=== PATIENT | female | born 1995 | race American Indian/Alaskan Native ===

== ENCOUNTER 2018-10-22 06:18 | Inpatient (IN) | payer MEDICAID ==
[2018-10-22] MEDS ORDERED: COLACE PO PRN (06:54)
[2018-10-22] MEDS ORDERED: ZOFRAN IV PRN (06:54)
[2018-10-22] MEDS ORDERED: TYLENOL PO PRN (06:54)
[2018-10-22] MEDS ORDERED: AMBIEN PO PRN ×2 (06:54→21:30)
[2018-10-22] MEDS ORDERED: BENADRYL PO PRN (06:54)
[2018-10-22] MEDS ORDERED: SENOKOT S PO PRN (06:54)
--- NOTE | 2018-10-22 07:14 | History and Physical Report ---
History of Present Illness Date of examination: 10/22/18 (pt presented with c/o DFM and poss elevated BP) History of present illness: 1st SAB 2nd 2017 31weeks "extremely elevated BP" c/s 2 pounds [facility] HX elevated BP no meds now Surgaical HX c/s Pt denies smoking, ETOH, drug use Pt has not had care up to this time for Past History - Obstetrical History : 3 Medications and Allergies Allergies Allergy/AdvReac Type Severity Reaction Status Date / Time No Known Allergies Allergy Unverified 10/22/18 06:35 Active Meds: Active Medications Acetaminophen (Tylenol) 650 mg PO Q4H PRN PRN Reason: Pain MILD(1-3)/Fever >100.5/HASSAN Diphenhydramine HCl (Benadryl) 25 mg PO Q6H PRN PRN Reason: Itching Docusate Sodium (Colace) 100 mg PO Q12H PRN PRN Reason: Constipation Guaifenesin (Guaifenesin Dm Syrup) 10 ml PO Q6H PRN PRN Reason: Cough Multivitamins/Iron/Calcium ( Vitamin) 1 each PO QDAY TERRELL Ondansetron HCl (Zofran) 4 mg IV Q6H PRN PRN Reason: Nausea And Vomiting Senna/Docusate Sodium (Senokot S) 2 tab PO Q12H PRN PRN Reason: Laxative Effect Zolpidem Tartrate (Ambien) 10 mg PO ONCE PRN PRN Reason: Sleep - Vital Signs Vital signs: Vital Signs Pulse BP 77 152/97 10/22/18 06:43 10/22/18 06:43 Temp Pulse Resp BP Pulse Ox 77 152/97 10/22/18 06:43 10/22/18 06:43 - Physical Exam Breasts: Positive: deferred Cardiovascular: Regular rate, Normal S1, Normal S2 Lungs: Positive: Normal air movement Abdomen: Positive: normal appearance, soft, normal bowel sounds. Negative: distention, tenderness Genitourinary (Female): Positive: normal external genitalia Vulva: both: normal Vagina: Positive: normal moisture. Negative: discharge Cervix: Negative: lesion, discharge Uterus: Positive: normal size, normal contour Adnexa: both: normal Anus/Rectum: Positive: normal perianal skin, heme negative. Negative: rectal mass, hemorrhoids Extremities: Deep Tendon Reflex Grade: Normal +2 - Obstetrical FHR: other (demise by US) Cervical Dilatation: 10 (BBOW) Uterine Contraction Pattern: Irregular Uterine Contraction Intensity: Moderate Results All other labs normal. Assessment and Plan 23yo @ 22weeks by her calculations Pt c/o DFM and elevated BP US reveals demise measures 17 weeks with a poss cystic hygroma. Pt is aware of findings. Appropriate grieving. All orders in EMR PIH labs ordered.
--- NOTE | 2018-10-22 07:46 | Ultrasound Report ---
PROCEDURE: US OB >= 14 WEEKS FETUS TECHNIQUE: Routine transabdominal imaging was obtained of the pelvis. HISTORY: well being COMPARISONS: None FINDINGS: There is a breech intrauterine with an estimated gestational age of 17 weeks 3 days space o n sonographic images. There is no observable heart rate compatible with demise. The place nta is fundal in position and is grade 1. The fluid volume is normal. A survey of organs was no t obtained. IMPRESSION: demise, 17 weeks 3 day .. The findings were discussed with Dr. Farr at 7:45 AM on 10/22/2018. This document is electronically signed by Jared Pendleton MD., Oct 22 2018 07:45:12 AM ET
[2018-10-22] MEDS ORDERED: LACTATED RINGERS 1,000 ML ONE ×2 (07:54→09:02)
[2018-10-22 08:27] LABS: Basophils % (Auto) 0.2 % (0.0-1.8); Eosinophils # (Auto) 0.1 K/mm3 (0.0-0.4); Hematocrit 30.9 % (30.3-42.9); Hemoglobin 10.1 gm/dl (10.1-14.3); Lymphocytes # (Auto) 2.2 K/mm3 (1.2-5.4); Mean Corpuscular HGB Conc 33 % (30-34); Mean Corpuscular Volume 86 fl (79-97); Monocytes # (Auto) 0.9 K/mm3 (0.0-0.8); Monocytes % (Auto) 7.2 % (0.0-7.3); Platelet Count 311 K/mm3 (140-440); Red Blood Count 3.59 M/mm3 (3.65-5.03); Red Cell Distribution Width 16.6 % (13.2-15.2)
[2018-10-22] MEDS ORDERED: SUBLIMAZE ONE (08:35)
[2018-10-22] MEDS ORDERED: PITOCin/NS 30 UNIT/500ML 30,000 MILLIUNITS/500 ML BAG IV ONE (08:49)
[2018-10-22 08:51] LABS: Hepatitis C Virus Antibody Non-Reactive (NonReactive)
[2018-10-22 08:54] LABS: Alanine Aminotransferase 7 units/L (7-56); Albumin 3.9 g/dL (3.9-5); BUN/Creatinine Ratio 6; Blood Urea Nitrogen 3 mg/dL (7-17); Hemolysis Index 2
[2018-10-22 08:56] LABS: Alanine Aminotransferase 7 units/L (7-56); Uric Acid 2.5 mg/dL (3.5-7.6)
[2018-10-22] MEDS ORDERED: STADOL ONE (09:02)
--- NOTE | 2018-10-22 09:29 | Event Note ---
Date: 10/22/18 (called to bedside by RN) Pt having strong urge to push. Pt pushed and body delivered in caul. Cervix now 2-3cm dilated with entrapment of head. consulted. Pitocin started Pain medication ordered. He will come by to see pt and evaluate.
[2018-10-22] MEDS ORDERED: PITOCin/NS 30 UNIT/500ML 30 UNITS/500 ML BAG IV SCH ×2 (09:30→10:00)
[2018-10-22] MEDS ORDERED: STADOL IV PRN (09:30)
[2018-10-22] MEDS: APRESOLINE IV PRN ×2 (09:41→10:19)
[2018-10-22] MEDS ORDERED: SUBLIMAZE IV ONE (10:00)
[2018-10-22] MEDS ORDERED: PRENATAL VITAMIN PO SCH (10:00)
[2018-10-22] MEDS ORDERED: PITOCin/NS 20 UNIT/1000ML DRIP 20,000 MILLIUNITS/1,000 ML BAG IV ONE (10:44)
--- NOTE | 2018-10-22 11:16 | Procedure Note ---
OB Delivery Note - Delivery Date of Delivery: 10/22/18 Managing Partner: ERIKA ALONZO Estimated blood loss: 200cc - Vaginal Delivery presentation: breech Intrapartum events: no care, foul smelling fluid, other(please specify) (IUFD Maternal Hypertension) Delivery monitor: external uterine Delivery placenta: spontaneous Anesthesia: intravenous Delivery comments: Called urgently to LDR. Pt had vomited and the fetus and placenta delivered En Caul POC sent to pathology. Pt appropriate. Her sister at bedside. consulted regarding BP mgt Will keep pt on Procardia XL - Infant A at 1 minute: 0 at 5 minutes: 0 Infant Gender: Ambiguous
[2018-10-22] MEDS: PROCARDIA XL PO SCH ×2 (11:58→21:47)
[2018-10-22] MEDS ORDERED: LANSINOH TP PRN (12:00)
[2018-10-22] MEDS ORDERED: SODIUM CHLORIDE FLUSH SYRINGE 10 ML IV PRN (12:00)
[2018-10-22] MEDS ORDERED: PHENERGAN PO PRN (12:00)
[2018-10-22] MEDS ORDERED: TUCKS PAD TP PRN (12:00)
[2018-10-22 12:35] LABS: Bacteria,Urine 2+ /HPF (Negative); Bilirubin,Urine NEG (Negative); Blood,Urine LG (Negative); Color,Urine Red (Yellow); Urobilinogen,Urine < 2.0 mg/dL (<2.0)
[2018-10-22 12:41] LABS: RBC,Urine > 182.0 /HPF (0.0-6.0)
[2018-10-22 13:16] LABS: Amphetamine Screen,Urine PRESUMPTIVE NEGATIVE; Benzodiazepines Screen,Urine PRESUMPTIVE NEGATIVE; Cocaine Screen,Urine PRESUMPTIVE NEGATIVE; Methadone Screen,Urine PRESUMPTIVE NEGATIVE; Opiate Screen,Urine PRESUMPTIVE NEGATIVE
[2018-10-22 13:36] LABS: Cannabinoid Screen,Urine PRESUMPTIVE POSITIVE
[2018-10-22] MEDS ORDERED: PITOCin/NS 20 UNIT/1000ML DRIP 20 UNITS/1,000 ML BAG IV SCH (14:00)
[2018-10-22] MEDS: IBUPROFEN PO SCH (15:16)
[2018-10-22] MEDS ORDERED: MILK OF MAGNESIA PO PRN (22:00)
[2018-10-22 22:34] LABS: Hematocrit 30.9 % (30.3-42.9); Hemoglobin 10.5 gm/dl (10.1-14.3)
[2018-10-23] MEDS ORDERED: BOOSTRIX IM ONE (06:00)
--- NOTE | 2018-10-23 06:19 | Discharge Summary ---
Providers - Providers Date of Admission: 10/22/18 08:06 Date of discharge: 10/23/18 (Pt desires d/c today) Attending physician: SHERRY HESS 10/22/18 Consult to Case Management [CONS] Routine Services Needed at Discharge: Equipment Sterilizer Primary care physician: SHERRY HESS Hospitalization Reason for admission: IUFD, other (hypertension) Delivery: Episiotomy: none Laceration: none Other procedures: none complications: none Discharge diagnosis: intrapartum demise baby: female Hospital course: uncomplicated vaginal delivery of a demise Pt resting No c/o voiced BP 140-120/90 afebrile No abdominal tenderness FF below umb Minimal lochia H&H stable 04/01 No s/sx of anemia Doing well s/p delivery of demise P: d/c today with instructions RTO one week for BP check RX for Procardia XL written Condition at discharge: Good Disposition: DC-01 TO HOME OR SELFCARE - Discharge Diagnoses (1) Elevated blood pressure affecting in second trimester, antepartum Status: Acute Comment: RTO one week for BP check (2) Foetal demise, less than 22 weeks, delivered, current hospitalisation Status: Acute Comment: Offered referral Pt declined at this time. RTO 4 weeks PP care Plan - Provider Discharge Summary Activity: routine, no sex for 6 weeks, no heavy lifting 4 weeks, no strenuous exercise Diet: other (low salt) Instructions: routine Additional instructions: [] Smoking cessation referral if applicable(refer to patient education folder for contact #) [] Refer to [facility] Booklet Call your doctor immediately for: * Fever > 100.5 * Heavy vaginal bleeding ( >1 pad per hour) * Severe persistent headache * Shortness of breath * Reddened, hot, painful area to leg or breast * Drainage or odor from incision. * Keep incision clean and dry at all times and follow doctor's instructions regarding bathing/showering - Follow up plan Follow up: SHERRY HESS MD [Primary Care Provider] - 7 Days (Please call [phone] to schedule your blood pressure check in 1 week. Call with headache, blurred vision, chest pain. Take medications as prescribed. [facility]: [address], [address] [place] [address])
[2018-10-23] MEDS: PROCARDIA XL PO SCH (10:06)
[2018-10-23] MEDS: IBUPROFEN PO SCH (10:06)
[2018-10-23] MEDS ORDERED: M-M-R II VACCINE SUB-Q ONE (11:00)
[2018-10-23 15:12] VITALS: BP 135/85
== END 2018-10-23 14:50 | disposition home or self-care (01) | DRG 774 ==
LOC: TRG 06:18 → LD 06:29 → TRG 08:05 → LD 08:06 → OB 15:11
PROVIDERS: ADMIT Obstetrics & Gynecology; ATTEND Obstetrics & Gynecology
PROC: 10E0XZZ Delivery of Products of Conception, External Approach (ICD-10-PCS; principal; 2018-10-22)
PROC: 3E0234Z Introduction of Serum, Toxoid and Vaccine into Muscle, Percutaneous Approach (ICD-10-PCS; 2018-10-23)
DX: O36.4XX0 Maternal care for intrauterine death, not applicable or unspecified (principal); O13.4 Gestational [pregnancy-induced] hypertension without significant proteinuria, complicating childbirth; O32.1XX0 Maternal care for breech presentation, not applicable or unspecified; Z37.1 Single stillbirth; Z3A.22 22 weeks gestation of pregnancy; Z23 Encounter for immunization
CPT/HCPCS: 36415; 76805; 80053; 80307; 81001; 82565; 83615; 84450; 84460; 84550; 85014; 85018; 85025; 85660; 86592; 86706; 86762; 86803; 86850; 86900; 86901; 87806; 88300; 88305; G0378; J0360; J0595; J2590; J3010; J7120

== ENCOUNTER 2019-05-28 09:09 | Inpatient (IN) | payer MEDICAID ==
[2019-05-28] MEDS ORDERED: hydrALAZINE 20 MG/1 ML INJ IV ONE (10:00)
[2019-05-28] MEDS: LACTATED RINGERS 1,000 ML IV SCH ×3 (10:25→19:43)
[2019-05-28 11:08] LABS: Mean Corpuscular HGB Conc 33 % (30-34); Mean Corpuscular Volume 91 fl (79-97); Platelet Count 255 K/mm3 (140-440); Red Blood Count 3.62 M/mm3 (3.65-5.03); Red Cell Distribution Width 15.6 % (13.2-15.2)
[2019-05-28 11:23] LABS: Alanine Aminotransferase 76 units/L (7-56); Uric Acid 4.4 mg/dL (3.5-7.6)
--- NOTE | 2019-05-28 11:36 | History and Physical Report ---
History of Present Illness Date of examination: 05/28/19 Chief complaint: Severe headache History of present illness: Pt is a 23yo BF EDC 09/29/19; EGA 22 2/7 weeks presents to L&D complaining of severe headache and elevated BP's 195/114; 196/122. She has a history of Preeclampsia and delivery @ 28 weeks, history of stillbirth and history of spontaneous @ 18 weeks. She had 1 visit at [facility] and scheduled to see [facility] this week, but will be admitted now for management of elevated BP. Past History Past Medical History: other (Preeclampsia) Past Surgical History: section Social history: no significant social history, single - Obstetrical History Expected Date of Delivery: 09/29/19 Actual Gestation: 22 Week(s) 2 Day(s) : 4 Medications and Allergies Allergies Allergy/AdvReac Type Severity Reaction Status Date / Time No Known Allergies Allergy Unverified 10/22/18 06:35 Home Medications Medication Instructions Recorded Confirmed Last Taken Type NIFEdipine XL [Procardia Xl] 30 mg PO Q12HR #60 tab 10/23/18 Unknown Rx Active Meds: Active Medications Acetaminophen/Butalbital/Caffeine (Fioricet) 2 tab PO Q4H PRN PRN Reason: Headache Hydralazine HCl (Apresoline) 10 mg IV Q30MIN PRN PRN Reason: Blood Pressure Lactated Ringer's (Lactated Ringers) 1,000 mls @ 125 mls/hr IV DIRECT TERRELL Last Admin: 05/28/19 10:25 Dose: 125 mls/hr Documented by: Review of Systems All systems: negative - Vital Signs Vital signs: Vital Signs Pulse BP Pulse Ox 53 L 195/114 96 05/28/19 09:32 05/28/19 09:32 05/28/19 09:32 Temp Pulse Resp BP Pulse Ox 81 175/95 99 05/28/19 11:22 05/28/19 11:22 05/28/19 09:42 - Physical Exam Breasts: Positive: deferred Abdomen: Positive: normal appearance Genitourinary (Female): Positive: normal external genitalia Uterus: Positive: enlarged - Obstetrical FHR: category 1 Uterine Contraction Monitor Mode: External Results Result Diagrams: 05/28/19 10:25 05/28/19 10:25 Abnormal lab results 05/28/19 05/28/19 Range/Units 10:25 10:25 WBC 15.2 H (4.5-11.0) K/mm3 RBC 3.62 L (3.65-5.03) M/mm3 RDW 15.6 H (13.2-15.2) % Creatinine 0.5 L (0.7-1.2) mg/dL AST 75 H (5-40) units/L ALT 76 H (7-56) units/L Lactate Dehydrogenase 430 H (91-180) units/L All other labs normal. Assessment and Plan - Patient Problems (1) Pre-eclampsia during in second trimester, antepartum Onset Date: 05/28/19 Current Visit: Yes Status: Acute Plan to address problem: A: IUP @ 22 2/7 weeks Preeclampsia History of Preeclampsia Previous C Section P: Admit to L&D for Observation and BP management Will begin IV Magnesium sulfate, IV Hydralazine Obtain [facility] consultation Ob u/s for growth (2) 22 weeks gestation of Onset Date: 05/28/19 Current Visit: No Status: Acute (3) Elevated blood pressure affecting in second trimester, antepartum Onset Date: 05/28/19 Current Visit: No Status: Acute
[2019-05-28] MEDS ORDERED: DOCUSATE SODIUM 100 MG CAP PO PRN (11:42)
[2019-05-28] MEDS ORDERED: MAGNESIUM SULFATE 4 GM/100 ML BAG IV ONE (11:42)
[2019-05-28] MEDS ORDERED: ACETAMINOPHEN 325 MG TAB PO PRN (11:42)
[2019-05-28] MEDS ORDERED: MAGNESIUM SULFATE 40GM/1000ML 40 GM/1,000 ML BAG IV SCH (12:00)
[2019-05-28] MEDS: BUTALB/ACETAMINOPHEN/CAFFEINE TAB PO PRN ×2 (12:45→17:28)
[2019-05-28] MEDS: hydrALAZINE 20 MG/1 ML INJ IV PRN ×2 (12:49→20:07)
[2019-05-28] MEDS: ONDANSETRON 4 MG/2 ML INJ IV PRN (13:17)
[2019-05-28 14:13] LABS: Bilirubin,Urine NEG (Negative); Blood,Urine NEG (Negative); Color,Urine Yellow (Yellow); Mucus,Urine FEW /HPF; Urobilinogen,Urine < 2.0 mg/dL (<2.0)
[2019-05-28 14:18] LABS: Protein,Urine >500 mg/dL (Negative)
--- NOTE | 2019-05-28 16:00 | Consultation ---
History of Present Illness Consult date: 05/28/19 Requesting physician: ADRIEL POWELL History of present illness: HPI Ms. Boss is a 23 y/o MAKI 09/28/18 EGA at 22 2/7 weeks presented with Severe HASSAN's and High BP's Denies H/O CHTN but first BP on OB' chart 05/18/19 at 138/92 and 136/78 Now with Elevated Liver Enz HASSAN's "10/10" on admission - Now at ""3/10" BP's on admission 220/114, 195/114 - Now 1 143/81 after IV Hydralazine Denies Scotoma or RUQ Pain Pos swelling lower ext --------- Sig History for Preeclampsia with prior 3 pregnancies OB History 2016 - Still at 27 weeks induced vag del 2017 - 29 weeks failed induction for preeclampsia - distress - C/S M 2# 2018 IUFD Vag Del ? 20 weeks "cyst on neck" ?? cystic hygroma ========= Currently on Mg - Labs 05/28/19 H/H at 11/33 Plts at 255 AST/ALT at 75/76 Creat at .5 Spot UA Prot at > 500 Denies CHTN but BP's 138/92 on first OB visit o 05/18/19 Surg C/S Denies STD's Denies C/D/D NKA Past History Past Medical History: other (Preeclampsia) Past Surgical History: section - Obstetrical History : 4 Medications and Allergies Allergies Allergy/AdvReac Type Severity Reaction Status Date / Time No Known Allergies Allergy Unverified 10/22/18 06:35 Home Medications Medication Instructions Recorded Confirmed Last Taken Type NIFEdipine XL [Procardia Xl] 30 mg PO Q12HR #60 tab 10/23/18 Unknown Rx Active Meds: Active Medications Acetaminophen (Tylenol) 650 mg PO Q4H PRN PRN Reason: Pain MILD(1-3)/Fever >100.5/HASSAN Acetaminophen/Butalbital/Caffeine (Fioricet) 2 tab PO Q4H PRN PRN Reason: Headache Last Admin: 05/28/19 12:45 Dose: 2 tab Documented by: Docusate Sodium (Colace) 100 mg PO Q12H PRN PRN Reason: Constipation Hydralazine HCl (Apresoline) 10 mg IV Q30MIN PRN PRN Reason: HTN >160/90 Last Admin: 05/28/19 12:49 Dose: 10 mg Documented by: Lactated Ringer's (Lactated Ringers) 1,000 mls @ 125 mls/hr IV DIRECT TERRELL Last Admin: 05/28/19 12:40 Dose: 125 mls/hr Documented by: Magnesium Sulfate (Magnesium Sulfate 40gm/1000ml) 40 gm in 1,000 mls @ 50 mls/hr IV DIRECT TERRELL Last Admin: 05/28/19 13:18 Dose: 2 gm/hr, 50 mls/hr Documented by: Labetalol HCl (Labetalol) 200 mg PO BID TERRELL Multivitamins/Iron/Calcium ( Vitamin) 1 each PO QDAY TERRELL Ondansetron HCl (Zofran) 4 mg IV Q6H PRN PRN Reason: Nausea And Vomiting Last Admin: 05/28/19 13:17 Dose: 4 mg Documented by: - Vital Signs Vital signs: Vital Signs Pulse BP Pulse Ox 53 L 195/114 96 05/28/19 09:32 05/28/19 09:32 05/28/19 09:32 Temp Pulse Resp BP Pulse Ox 90 143/81 99 05/28/19 15:46 05/28/19 15:34 05/28/19 15:46 Results Result Diagrams: 05/28/19 10:25 05/28/19 10:25 Abnormal lab results 05/28/19 05/28/19 Range/Units 10:25 10:25 WBC 15.2 H (4.5-11.0) K/mm3 RBC 3.62 L (3.65-5.03) M/mm3 RDW 15.6 H (13.2-15.2) % Creatinine 0.5 L (0.7-1.2) mg/dL AST 75 H (5-40) units/L ALT 76 H (7-56) units/L Lactate Dehydrogenase 430 H (91-180) units/L All other labs normal. Assessment and Plan Impression: 1. Amin IUPat 22 2/7 weeks 2. Severe Preeclampsia (suspected CHTN with superimposed preeclampsia) 3. Atypical HELLP - Elevated Liver Enz - Plts WNL 4. Sig History for Preeclampsia and IUFD with Prior Preg's 5. Prior C/S Recommendations 1. Repeat CBC CMP q 12 Hours 2. Obtain drug screen and baseline DIC profile 3. 24 Hour urine prot pending 4. NICU consult 5. IV hydralazine or Labetalol per protocol 6. Explained in detail with patient she developed severe for or PIH and offered induction to prevent maternal morbidity/mortality and she declined and wishes to continue . Explained if Liver Enz continue to rise and/or plts decreasing or Symptoms/BP's worsening may need to delivery regardless of gest age 7. Steroids for FLM at 23 weeks 8. Seq Leg compressors 9. Labetalol 200 PO BID 10. US for growth 11. Discussed wtih Dr. Angel Powell
--- NOTE | 2019-05-28 19:53 | Ultrasound Report ---
US OB follow up INDICATION / CLINICAL INFORMATION: well being. -induced hypertension COMPARISON: None available. FINDINGS: Single, viable intrauterine , currently in breech presentation. heart rate 06/22/2016. Amniotic fluid volume is subjectively normal. Placenta is posterior and free of the cervical os. Cervical length measures 3.4 cm. Biparietal diameter 4.8 cm, 20 weeks 4 days. Head circumference 17.9 cm, 20 weeks 2 days. Abdominal circumference 15.3 cm, 20 weeks 3 days. Femur length 3.4 cm, 20 weeks 4 days Estimated weight 357 g. IMPRESSION: 1. Single, viable intrauterine in breech presentation. Ultrasound estimated gestational age 20 weeks 3 days. Signer Name: Von Bynum MD Signed: 05/28/2019 7:49 PM Workstation Name: [id number]
[2019-05-28 20:12] LABS: Amphetamine Screen,Urine PRESUMPTIVE NEGATIVE; Benzodiazepines Screen,Urine PRESUMPTIVE NEGATIVE; Cocaine Screen,Urine PRESUMPTIVE NEGATIVE; Methadone Screen,Urine PRESUMPTIVE NEGATIVE; Opiate Screen,Urine PRESUMPTIVE NEGATIVE
[2019-05-28 21:00] LABS: Cannabinoid Screen,Urine PRESUMPTIVE POSITIVE
[2019-05-28 21:00] LABS: Alanine Aminotransferase 66 units/L (7-56)
[2019-05-29] MEDS: BUTALB/ACETAMINOPHEN/CAFFEINE TAB PO PRN ×2 (00:04→22:37)
[2019-05-29] MEDS: LACTATED RINGERS 1,000 ML IV SCH (01:52)
[2019-05-29 01:59] LABS: INR 1.02 (0.87-1.13); Partial Thromboplastin Time 27.9 Sec. (24.2-36.6)
--- NOTE | 2019-05-29 08:38 | Consultation ---
History of Present Illness Consult date: 05/29/19 Requesting physician: ADRIEL POWELL History of present illness: [facility] [employer] - Consult Note HPI Ms. Boss is a 23 y/o MAKI 09/28/18 EGA at 22 3/7 weeks presented with Severe HASSAN's and High BP's - BP's on admission 220/114, 195/114 - Now 1 143/81 after IV Hydralazine Denies H/O CHTN but first BP on OB' chart 05/18/19 at 138/92 and 136/78 05/29/19 BP's 161/95, 157/96, 159/99 Now Denies HASSAN's Scotoma or RUQ Pain DTR 06/06 no clonus \\ [facility] US 05/28/19 EFW at 357 grams - 1% - Severe IUGR Sig History for Preeclampsia with prior 3 pregnancies OB History 2016 - Still at 27 weeks induced vag del 2017 - 29 weeks failed induction for preeclampsia - distress - C/S M 2# 2018 IUFD Vag Del ? 20 weeks "cyst on neck" ?? cystic hygroma ========= Currently on Mg - Labs 05/28/19 Repeat labs 05/28/19 around 10pm H/H at 1133 Plts at 255 not repeated AST/ALT at 75/76 58/66 - improved Creat at .5 Spot UA Prot at > 500 Denies CHTN but BP's 138/92 on first OB visit o 05/18/19 Surg C/S Denies STD's Denies C/D/D NKA Assessment and Plan Impression: 1. Amin IUPat 22 3/7 weeks - Severe IUGR - EFW at 1% - 357 grams 2. Severe Preeclampsia (suspected CHTN with superimposed preeclampsia) 3. Atypical HELLP - Elevated Liver Enz - Plts WNL 4. Sig History for Preeclampsia and IUFD with Prior Preg's 5. Prior C/S Recommendations 1. Repeat CBC CMP q d Hours 2. Obtain drug screen and baseline DIC profile - done - Negative 3. 24 Hour urine prot pending 4. NICU consult 5. IV hydralazine or Labetalol per protocol 6. Explained in detail with patient she developed severe for or PIH and offered induction to prevent maternal morbidity/mortality and she declined and wishes to continue . Explained if Liver Enz continue to rise and/or plts decreasing or Symptoms/BP's worsening may need to delivery regardless of gest age Explained Severe IUGR - once fetus reaches 24 weeks will start cord arterial dopplers - At 26 weeks initiate BPP's twice per week Obtain Torch IgG and IgM Titer and ALPS and TSH Declined Amnio - Please have OB bring NIPT kit Offer NIPT if can be done in house 7. Steroids for FLM at 23 weeks 8. Seq Leg compressors 9. Labetalol 200 PO BID 10. US for growth 11. Discussed wtih Dr. Angel Powell Past History Past Medical History: other (Preeclampsia) Past Surgical History: section - Obstetrical History : 4 Medications and Allergies Allergies Allergy/AdvReac Type Severity Reaction Status Date / Time No Known Allergies Allergy Unverified 10/22/18 06:35 Home Medications Medication Instructions Recorded Confirmed Last Taken Type NIFEdipine XL [Procardia Xl] 30 mg PO Q12HR #60 tab 10/23/18 05/28/19 Unknown Rx Active Meds: Active Medications Acetaminophen (Tylenol) 650 mg PO Q4H PRN PRN Reason: Pain MILD(1-3)/Fever >100.5/HASSAN Acetaminophen/Butalbital/Caffeine (Fioricet) 2 tab PO Q4H PRN PRN Reason: Headache Last Admin: 05/29/19 00:04 Dose: 2 tab Documented by: Docusate Sodium (Colace) 100 mg PO Q12H PRN PRN Reason: Constipation Hydralazine HCl (Apresoline) 10 mg IV Q30MIN PRN PRN Reason: HTN >160/90 Last Admin: 05/28/19 20:07 Dose: 10 mg Documented by: Lactated Ringer's (Lactated Ringers) 1,000 mls @ 125 mls/hr IV DIRECT TERRELL Last Infusion: 05/29/19 01:53 Dose: 75 mls/hr Documented by: Magnesium Sulfate (Magnesium Sulfate 40gm/1000ml) 40 gm in 1,000 mls @ 50 mls/hr IV DIRECT TERRELL Last Admin: 05/28/19 13:18 Dose: 2 gm/hr, 50 mls/hr Documented by: Labetalol HCl (Labetalol) 200 mg PO BID TERRELL Last Admin: 05/28/19 21:39 Dose: 200 mg Documented by: Multivitamins/Iron/Calcium ( Vitamin) 1 each PO QDAY [facility] Ondansetron HCl (Zofran) 4 mg IV Q6H PRN PRN Reason: Nausea And Vomiting Last Admin: 05/28/19 13:17 Dose: 4 mg Documented by: - Vital Signs Vital signs: Vital Signs Pulse BP Pulse Ox 53 L 195/114 96 05/28/19 09:32 05/28/19 09:32 05/28/19 09:32 Temp Pulse Resp BP Pulse Ox 97.8 F 82 13 163/108 99 05/29/19 08:17 05/29/19 08:28 05/29/19 08:17 05/29/19 08:25 05/29/19 08:28 Results Result Diagrams: 05/28/19 10:25 05/28/19 10:25 Abnormal lab results 05/28/19 05/28/19 05/28/19 Range/Units 10:25 10:25 15:56 WBC 15.2 H (4.5-11.0) K/mm3 RBC 3.62 L (3.65-5.03) M/mm3 RDW 15.6 H (13.2-15.2) % Creatinine 0.5 L (0.7-1.2) mg/dL Magnesium 4.80 H (1.7-2.3) mg/dL AST 75 H (5-40) units/L ALT 76 H (7-56) units/L Lactate Dehydrogenase 430 H (91-180) units/L 05/28/19 05/28/19 05/29/19 Range/Units 20:24 20:24 00:36 WBC (4.5-11.0) K/mm3 RBC (3.65-5.03) M/mm3 RDW (13.2-15.2) % Creatinine (0.7-1.2) mg/dL Magnesium 6.00 H 5.20 H (1.7-2.3) mg/dL AST 58 H (5-40) units/L ALT 66 H (7-56) units/L Lactate Dehydrogenase 406 H (91-180) units/L All other labs normal.
[2019-05-29] MEDS: hydrALAZINE 20 MG/1 ML INJ IV PRN ×3 (09:12→21:45)
[2019-05-29 09:49] LABS: Hematocrit 33.4 % (30.3-42.9); Hemoglobin 11.1 gm/dl (10.1-14.3); Mean Corpuscular HGB Conc 33 % (30-34); Mean Corpuscular Volume 91 fl (79-97); Platelet Count 260 K/mm3 (140-440); Red Blood Count 3.69 M/mm3 (3.65-5.03); Red Cell Distribution Width 15.5 % (13.2-15.2)
[2019-05-29 10:16] LABS: Alanine Aminotransferase 57 units/L (7-56); Albumin 3.1 g/dL (3.9-5); BUN/Creatinine Ratio 12; Blood Urea Nitrogen 7 mg/dL (7-17); Calcium 7.4 mg/dL (8.4-10.2); Hemolysis Index 55
--- NOTE | 2019-05-29 10:46 | Progress Note ---
Assessment and Plan - Patient Problems (1) Pre-eclampsia during in second trimester, antepartum Onset Date: 05/28/19 Current Visit: Yes Status: Acute Plan to address problem: A: IUP @ 22 3/7 weeks Chronic hypertension with superimposed Preeclampsia Atypical HELLP - improving LFT's History of Preeclampsia Previous C Section P: Continue Observation and BP management Continue IV Magnesium sulfate, IV Hydralazine and PO Labetolol Awaiting 24hour urine Appreciate APA consultation (2) 22 weeks gestation of Onset Date: 05/28/19 Current Visit: No Status: Acute (3) Elevated blood pressure affecting in second trimester, antepartum Onset Date: 05/28/19 Current Visit: No Status: Acute Subjective - Subjective Date of service: 05/29/19 Principal diagnosis: IUP @ 22 3/7 weeks; CHTN with superimposed Preeclampsia; Atypical HELLP Interval history: Pt is a 23yo BF EDC 09/29/19; EGA 22 3/7 weeks who presented to L&D complaining of severe headache and elevated BP's 195/114; 196/122. She has a history of Preeclampsia and delivery @ 28 weeks, history of stillbirth @ 27 weeks and history of spontaneous @ 18 weeks. She is currently on IV Magnesium sulfate, IV Hydralazine and PO Labetolol and admitted for management of elevated BP. She is currently feeling well without complaints of headaches, blurred vision and epigastric pain. Patient reports: movement normal, no new complaints, no loss of fluid, no vaginal bleeding, no contractions Objective - Vital Signs Vital Signs: Vital Signs - 12hr 05/28/19 05/28/19 05/28/19 22:46 22:51 22:56 Temperature Pulse Rate 89 84 85 Respiratory Rate Blood Pressure Blood Pressure [Right] O2 Sat by Pulse 96 97 97 Oximetry 05/28/19 05/28/19 05/28/19 23:00 23:01 23:03 Temperature 98.1 F Pulse Rate 84 90 Respiratory Rate Blood Pressure 142/92 Blood Pressure [Right] O2 Sat by Pulse 97 Oximetry 05/28/19 05/28/19 05/28/19 23:06 23:11 23:16 Temperature Pulse Rate 81 91 H 84 Respiratory Rate Blood Pressure Blood Pressure [Right] O2 Sat by Pulse 96 98 98 Oximetry 05/28/19 05/28/19 05/28/19 23:17 23:21 23:26 Temperature Pulse Rate 85 81 83 Respiratory Rate Blood Pressure Blood Pressure [Right] O2 Sat by Pulse 94 95 95 Oximetry 05/28/19 05/28/19 05/28/19 23:31 23:33 23:36 Temperature Pulse Rate 82 89 93 H Respiratory Rate Blood Pressure 140/88 Blood Pressure [Right] O2 Sat by Pulse 96 93 Oximetry 05/28/19 05/28/19 05/28/19 23:41 23:46 23:51 Temperature Pulse Rate 93 H 88 83 Respiratory Rate Blood Pressure Blood Pressure [Right] O2 Sat by Pulse 97 96 97 Oximetry 05/28/19 05/29/19 05/29/19 23:56 00:00 00:01 Temperature 98.4 F Pulse Rate 84 79 Respiratory 18 Rate Blood Pressure Blood Pressure [Right] O2 Sat by Pulse 96 96 Oximetry 05/29/19 05/29/19 05/29/19 00:03 00:04 00:06 Temperature Pulse Rate 82 83 Respiratory 18 Rate Blood Pressure 152/85 Blood Pressure [Right] O2 Sat by Pulse 96 Oximetry 05/29/19 05/29/19 05/29/19 00:11 00:16 00:21 Temperature Pulse Rate 88 83 86 Respiratory Rate Blood Pressure Blood Pressure [Right] O2 Sat by Pulse 99 96 98 Oximetry 05/29/19 05/29/19 05/29/19 00:26 00:31 00:33 Temperature Pulse Rate 88 90 87 Respiratory Rate Blood Pressure 137/84 Blood Pressure [Right] O2 Sat by Pulse 98 98 Oximetry 05/29/19 05/29/19 05/29/19 00:36 00:41 00:46 Temperature Pulse Rate 88 86 86 Respiratory Rate Blood Pressure Blood Pressure [Right] O2 Sat by Pulse 98 98 98 Oximetry 05/29/19 05/29/19 05/29/19 00:51 00:56 01:01 Temperature Pulse Rate 88 85 83 Respiratory Rate Blood Pressure Blood Pressure [Right] O2 Sat by Pulse 98 97 97 Oximetry 05/29/19 05/29/19 05/29/19 01:03 01:06 01:11 Temperature Pulse Rate 85 89 83 Respiratory Rate Blood Pressure 144/88 Blood Pressure [Right] O2 Sat by Pulse 98 99 Oximetry 05/29/19 05/29/19 05/29/19 01:16 01:21 01:26 Temperature Pulse Rate 83 88 82 Respiratory Rate Blood Pressure Blood Pressure [Right] O2 Sat by Pulse 99 99 99 Oximetry 05/29/19 05/29/19 05/29/19 01:31 01:36 01:41 Temperature Pulse Rate 86 76 75 Respiratory Rate Blood Pressure 143/91 Blood Pressure [Right] O2 Sat by Pulse 99 99 98 Oximetry 05/29/19 05/29/19 05/29/19 01:46 01:51 01:56 Temperature Pulse Rate 81 81 73 Respiratory Rate Blood Pressure Blood Pressure [Right] O2 Sat by Pulse 97 98 98 Oximetry 05/29/19 05/29/19 05/29/19 02:01 02:03 02:06 Temperature Pulse Rate 78 76 76 Respiratory Rate Blood Pressure 152/90 Blood Pressure [Right] O2 Sat by Pulse 98 98 Oximetry 05/29/19 05/29/19 05/29/19 02:11 02:16 02:21 Temperature Pulse Rate 74 80 73 Respiratory Rate Blood Pressure Blood Pressure [Right] O2 Sat by Pulse 99 98 98 Oximetry 05/29/19 05/29/19 05/29/19 02:26 02:31 02:33 Temperature Pulse Rate 70 68 72 Respiratory Rate Blood Pressure 134/86 Blood Pressure [Right] O2 Sat by Pulse 96 95 Oximetry 05/29/19 05/29/19 05/29/19 02:36 02:41 02:44 Temperature Pulse Rate 74 71 71 Respiratory Rate Blood Pressure Blood Pressure [Right] O2 Sat by Pulse 95 95 94 Oximetry 05/29/19 05/29/19 05/29/19 02:46 02:49 02:51 Temperature Pulse Rate 74 73 73 Respiratory Rate Blood Pressure Blood Pressure [Right] O2 Sat by Pulse 95 94 94 Oximetry 05/29/19 05/29/19 05/29/19 02:55 02:56 03:00 Temperature Pulse Rate 72 74 74 Respiratory Rate Blood Pressure Blood Pressure [Right] O2 Sat by Pulse 94 95 94 Oximetry 05/29/19 05/29/19 05/29/19 03:01 03:03 03:06 Temperature Pulse Rate 72 70 73 Respiratory Rate Blood Pressure 149/86 Blood Pressure [Right] O2 Sat by Pulse 94 95 Oximetry 05/29/19 05/29/19 05/29/19 03:08 03:11 03:14 Temperature Pulse Rate 75 77 74 Respiratory Rate Blood Pressure Blood Pressure [Right] O2 Sat by Pulse 94 95 94 Oximetry 05/29/19 05/29/19 05/29/19 03:16 03:21 03:23 Temperature Pulse Rate 73 75 74 Respiratory Rate Blood Pressure Blood Pressure [Right] O2 Sat by Pulse 95 94 94 Oximetry 05/29/19 05/29/19 05/29/19 03:26 03:30 03:31 Temperature Pulse Rate 76 75 73 Respiratory Rate Blood Pressure Blood Pressure [Right] O2 Sat by Pulse 95 94 95 Oximetry 05/29/19 05/29/19 05/29/19 03:33 03:35 03:36 Temperature Pulse Rate 72 77 75 Respiratory Rate Blood Pressure 143/87 Blood Pressure [Right] O2 Sat by Pulse 94 94 Oximetry 05/29/19 05/29/19 05/29/19 03:41 03:42 03:46 Temperature Pulse Rate 77 78 76 Respiratory Rate Blood Pressure Blood Pressure [Right] O2 Sat by Pulse 96 94 95 Oximetry 05/29/19 05/29/19 05/29/19 03:51 03:54 03:56 Temperature Pulse Rate 78 76 76 Respiratory Rate Blood Pressure Blood Pressure [Right] O2 Sat by Pulse 96 94 95 Oximetry 05/29/19 05/29/19 05/29/19 04:00 04:01 04:03 Temperature Pulse Rate 74 78 77 Respiratory Rate Blood Pressure 129/81 Blood Pressure [Right] O2 Sat by Pulse 94 96 Oximetry 05/29/19 05/29/19 05/29/19 04:06 04:07 04:11 Temperature Pulse Rate 77 76 75 Respiratory Rate Blood Pressure Blood Pressure [Right] O2 Sat by Pulse 95 94 95 Oximetry 05/29/19 05/29/19 05/29/19 04:16 04:21 04:26 Temperature Pulse Rate 76 77 78 Respiratory Rate Blood Pressure Blood Pressure [Right] O2 Sat by Pulse 96 95 95 Oximetry 05/29/19 05/29/19 05/29/19 04:31 04:33 04:36 Temperature Pulse Rate 76 75 78 Respiratory Rate Blood Pressure 131/78 Blood Pressure [Right] O2 Sat by Pulse 95 97 Oximetry 05/29/19 05/29/19 05/29/19 04:41 04:42 04:46 Temperature Pulse Rate 76 76 76 Respiratory Rate Blood Pressure Blood Pressure [Right] O2 Sat by Pulse 96 94 96 Oximetry 05/29/19 05/29/19 05/29/19 04:51 04:56 05:01 Temperature Pulse Rate 75 77 75 Respiratory Rate Blood Pressure Blood Pressure [Right] O2 Sat by Pulse 96 96 96 Oximetry 05/29/19 05/29/19 05/29/19 05:03 05:06 05:11 Temperature Pulse Rate 76 74 76 Respiratory Rate Blood Pressure 143/91 Blood Pressure [Right] O2 Sat by Pulse 96 98 Oximetry 05/29/19 05/29/19 05/29/19 05:16 05:21 05:26 Temperature Pulse Rate 71 77 77 Respiratory Rate Blood Pressure Blood Pressure [Right] O2 Sat by Pulse 96 95 95 Oximetry 05/29/19 05/29/19 05/29/19 05:31 05:33 05:36 Temperature Pulse Rate 78 77 74 Respiratory Rate Blood Pressure 146/90 Blood Pressure [Right] O2 Sat by Pulse 95 94 95 Oximetry 05/29/19 05/29/19 05/29/19 05:38 05:41 05:46 Temperature Pulse Rate 76 73 74 Respiratory Rate Blood Pressure Blood Pressure [Right] O2 Sat by Pulse 94 96 95 Oximetry 05/29/19 05/29/19 05/29/19 05:51 05:56 06:01 Temperature Pulse Rate 74 83 81 Respiratory Rate Blood Pressure Blood Pressure [Right] O2 Sat by Pulse 93 96 96 Oximetry 05/29/19 05/29/19 05/29/19 06:02 06:03 06:33 Temperature Pulse Rate 84 78 75 Respiratory Rate Blood Pressure 158/100 160/94 Blood Pressure [Right] O2 Sat by Pulse 94 Oximetry 05/29/19 05/29/19 05/29/19 07:03 07:33 08:03 Temperature Pulse Rate 83 73 74 Respiratory Rate Blood Pressure 177/105 161/95 157/96 Blood Pressure [Right] O2 Sat by Pulse Oximetry 05/29/19 05/29/19 05/29/19 08:17 08:18 08:20 Temperature 97.8 F Pulse Rate 83 83 88 Respiratory 13 Rate Blood Pressure 159/99 Blood Pressure 159/99 [Right] O2 Sat by Pulse 100 100 87 Oximetry 05/29/19 05/29/19 05/29/19 08:23 08:25 08:28 Temperature Pulse Rate 77 82 82 Respiratory Rate Blood Pressure 163/108 Blood Pressure [Right] O2 Sat by Pulse 98 99 Oximetry 05/29/19 05/29/19 05/29/19 08:33 08:34 08:38 Temperature Pulse Rate 81 82 90 Respiratory Rate Blood Pressure 185/108 Blood Pressure [Right] O2 Sat by Pulse 98 93 97 Oximetry 05/29/19 05/29/19 05/29/19 08:43 08:48 08:53 Temperature Pulse Rate 80 80 78 Respiratory Rate Blood Pressure Blood Pressure [Right] O2 Sat by Pulse 100 100 98 Oximetry 05/29/19 05/29/19 05/29/19 08:58 09:03 09:08 Temperature Pulse Rate 76 84 76 Respiratory Rate Blood Pressure 176/114 Blood Pressure [Right] O2 Sat by Pulse 98 99 98 Oximetry 05/29/19 05/29/19 05/29/19 09:12 09:13 09:18 Temperature Pulse Rate 79 77 85 Respiratory Rate Blood Pressure 176/114 Blood Pressure [Right] O2 Sat by Pulse 99 98 Oximetry 05/29/19 05/29/19 05/29/19 09:20 09:21 09:23 Temperature Pulse Rate 79 81 79 Respiratory Rate Blood Pressure 147/94 Blood Pressure [Right] O2 Sat by Pulse 92 99 Oximetry 05/29/19 05/29/19 05/29/19 09:28 09:30 09:33 Temperature Pulse Rate 93 H 80 87 Respiratory 18 Rate Blood Pressure 147/92 Blood Pressure 179/114 [Right] O2 Sat by Pulse 98 100 99 Oximetry 05/29/19 05/29/19 05/29/19 09:34 09:38 09:40 Temperature Pulse Rate 63 49 L 93 H Respiratory Rate Blood Pressure Blood Pressure [Right] O2 Sat by Pulse 87 88 63 L Oximetry 05/29/19 05/29/19 05/29/19 09:43 09:48 09:53 Temperature Pulse Rate 90 86 81 Respiratory Rate Blood Pressure Blood Pressure [Right] O2 Sat by Pulse 98 99 98 Oximetry 05/29/19 05/29/19 05/29/19 09:58 10:03 10:08 Temperature Pulse Rate 81 79 81 Respiratory Rate Blood Pressure 144/94 Blood Pressure [Right] O2 Sat by Pulse 98 97 97 Oximetry 05/29/19 05/29/19 05/29/19 10:13 10:18 10:23 Temperature Pulse Rate 83 82 79 Respiratory Rate Blood Pressure Blood Pressure [Right] O2 Sat by Pulse 97 97 97 Oximetry 05/29/19 05/29/19 05/29/19 10:28 10:33 10:38 Temperature Pulse Rate 78 80 79 Respiratory Rate Blood Pressure 150/99 Blood Pressure [Right] O2 Sat by Pulse 97 97 97 Oximetry - Exam Breasts: deferred Abdomen: Present: normal appearance, soft Uterus: Present: normal FHR: auscultation normal, category 1 Uterine Contraction Monitor Mode: External Uterine Contraction Pattern: Irregular Uterine Tone Measurement Phase: Contraction Uterine Contraction Intensity: Mild - Labs Labs: Abnormal Labs 05/28/19 05/28/19 05/28/19 10:25 10:25 15:56 WBC 15.2 H RBC 3.62 L RDW 15.6 H Sodium Carbon Dioxide Creatinine 0.5 L Glucose Calcium Magnesium 4.80 H AST 75 H ALT 76 H Lactate Dehydrogenase 430 H Albumin 05/28/19 05/28/19 05/29/19 20:24 20:24 00:36 WBC RBC RDW Sodium Carbon Dioxide Creatinine Glucose Calcium Magnesium 6.00 H 5.20 H AST 58 H ALT 66 H Lactate Dehydrogenase 406 H Albumin 05/29/19 05/29/19 09:07 09:07 WBC 14.5 H RBC RDW 15.5 H Sodium 134 L Carbon Dioxide 16 L Creatinine 0.6 L Glucose 101 H Calcium 7.4 L Magnesium AST ALT 57 H Lactate Dehydrogenase Albumin 3.1 L Laboratory Results - last 24 hr 05/28/19 05/28/19 05/28/19 10:25 10:25 13:45 WBC 15.2 H RBC 3.62 L Hgb 11.0 Hct 33.0 MCV 91 MCH 30 MCHC 33 RDW 15.6 H Plt Count 255 PT INR APTT Sodium Potassium Chloride Carbon Dioxide Anion Gap BUN Creatinine 0.5 L Estimated GFR > 60 BUN/Creatinine Ratio Glucose Uric Acid 4.4 Calcium Magnesium Total Bilirubin AST 75 H ALT 76 H Alkaline Phosphatase Lactate Dehydrogenase 430 H Total Protein Albumin Albumin/Globulin Ratio Urine Color Yellow Urine Turbidity Clear Urine pH 6.0 Ur Specific [place] 1.023 Urine Protein >500 Urine Glucose (UA) 50 Urine Ketones 20 Urine Blood Neg Urine Nitrite Neg Urine Bilirubin Neg Urine Urobilinogen < 2.0 Ur Leukocyte Esterase Neg Urine WBC (Auto) 4.0 Urine RBC (Auto) 2.0 U Epithel Cells (Auto) 1.0 Urine Mucus Few Urine Opiates Screen Urine Methadone Screen Ur Barbiturates Screen Ur Phencyclidine Scrn Ur Amphetamines Screen U Benzodiazepines Scrn Urine Cocaine Screen U Marijuana (THC) Screen Drugs of Abuse Note Blood Type Antibody Screen 05/28/19 05/28/19 05/28/19 15:56 19:45 20:24 WBC RBC Hgb Hct MCV MCH MCHC RDW Plt Count PT INR APTT Sodium Potassium Chloride Carbon Dioxide Anion Gap BUN Creatinine Estimated GFR BUN/Creatinine Ratio Glucose Uric Acid Calcium Magnesium 4.80 H 6.00 H Total Bilirubin AST ALT Alkaline Phosphatase Lactate Dehydrogenase Total Protein Albumin Albumin/Globulin Ratio Urine Color Urine Turbidity Urine pH Ur Specific [place] Urine Protein Urine Glucose (UA) Urine Ketones Urine Blood Urine Nitrite Urine Bilirubin Urine Urobilinogen Ur Leukocyte Esterase Urine WBC (Auto) Urine RBC (Auto) U Epithel Cells (Auto) Urine Mucus Urine Opiates Screen Presumptive negative Urine Methadone Screen Presumptive negative Ur Barbiturates Screen Presumptive positive Ur Phencyclidine Scrn Presumptive negative Ur Amphetamines Screen Presumptive negative U Benzodiazepines Scrn Presumptive negative Urine Cocaine Screen Presumptive negative U Marijuana (THC) Screen Presumptive positive Drugs of Abuse Note Disclamer Blood Type Antibody Screen 05/28/19 05/29/19 05/29/19 20:24 00:36 00:36 WBC RBC Hgb Hct MCV MCH MCHC RDW Plt Count PT INR APTT Sodium Potassium Chloride Carbon Dioxide Anion Gap BUN Creatinine Estimated GFR BUN/Creatinine Ratio Glucose Uric Acid Calcium Magnesium 5.20 H Total Bilirubin AST 58 H ALT 66 H Alkaline Phosphatase Lactate Dehydrogenase 406 H Total Protein Albumin Albumin/Globulin Ratio Urine Color Urine Turbidity Urine pH Ur Specific [place] Urine Protein Urine Glucose (UA) Urine Ketones Urine Blood Urine Nitrite Urine Bilirubin Urine Urobilinogen Ur Leukocyte Esterase Urine WBC (Auto) Urine RBC (Auto) U Epithel Cells (Auto) Urine Mucus Urine Opiates Screen Urine Methadone Screen Ur Barbiturates Screen Ur Phencyclidine Scrn Ur Amphetamines Screen U Benzodiazepines Scrn Urine Cocaine Screen U Marijuana (THC) Screen Drugs of Abuse Note Blood Type O POSITIVE Antibody Screen Negative 05/29/19 05/29/19 05/29/19 00:36 09:07 09:07 WBC 14.5 H RBC 3.69 Hgb 11.1 Hct 33.4 MCV 91 MCH 30 MCHC 33 RDW 15.5 H Plt Count 260 PT 13.5 INR 1.02 APTT 27.9 Sodium 134 L Potassium 4.0 Chloride 102.7 Carbon Dioxide 16 L Anion Gap 19 BUN 7 Creatinine 0.6 L Estimated GFR > 60 BUN/Creatinine Ratio 12 Glucose 101 H Uric Acid Calcium 7.4 L Magnesium Total Bilirubin 0.20 AST ALT 57 H Alkaline Phosphatase 98 Lactate Dehydrogenase Total Protein 6.6 Albumin 3.1 L Albumin/Globulin Ratio 0.9 Urine Color Urine Turbidity Urine pH Ur Specific [place] Urine Protein Urine Glucose (UA) Urine Ketones Urine Blood Urine Nitrite Urine Bilirubin Urine Urobilinogen Ur Leukocyte Esterase Urine WBC (Auto) Urine RBC (Auto) U Epithel Cells (Auto) Urine Mucus Urine Opiates Screen Urine Methadone Screen Ur Barbiturates Screen Ur Phencyclidine Scrn Ur Amphetamines Screen U Benzodiazepines Scrn Urine Cocaine Screen U Marijuana (THC) Screen Drugs of Abuse Note Blood Type Antibody Screen - Results US- obstetric: report reviewed (Amin, Breech, EFW [id number], FHT's [id number])
[2019-05-29] MEDS: PRENATAL VIT27-FE FUMARATE-FOLIC ACID VIT TAB PO SCH (10:48)
[2019-05-29 21:48] LABS: Hematocrit 31.7 % (30.3-42.9); Hemoglobin 10.7 gm/dl (10.1-14.3); Mean Corpuscular HGB Conc 34 % (30-34); Mean Corpuscular Volume 91 fl (79-97); Red Blood Count 3.51 M/mm3 (3.65-5.03); Red Cell Distribution Width 15.8 % (13.2-15.2)
[2019-05-29 21:49] LABS: Platelet Count 264 K/mm3 (140-440)
[2019-05-29 22:12] LABS: Alanine Aminotransferase 46 units/L (7-56); BUN/Creatinine Ratio 10; Blood Urea Nitrogen 5 mg/dL (7-17); Calcium 7.2 mg/dL (8.4-10.2); Hemolysis Index 2
[2019-05-30] MEDS: hydrALAZINE 20 MG/1 ML INJ IV PRN ×5 (00:47→23:02)
[2019-05-30] MEDS: LACTATED RINGERS 1,000 ML IV SCH (06:35)
--- NOTE | 2019-05-30 07:48 | Progress Note ---
Assessment and Plan - Patient Problems (1) Pre-eclampsia during in second trimester, antepartum Onset Date: 05/28/19 Current Visit: Yes Status: Acute Plan to address problem: A: IUP @ 22 4/7 weeks Chronic hypertension with superimposed Preeclampsia Atypical HELLP - improved LFT's History of Preeclampsia Previous C Section P: Continue Observation and BP management as per [facility] Continue IV Hydralazine prn, increase PO Labetolol, and add Procardia XL (2) 22 weeks gestation of Onset Date: 05/28/19 Current Visit: No Status: Acute (3) Elevated blood pressure affecting in second trimester, antepartum Onset Date: 05/28/19 Current Visit: No Status: Acute Subjective - Subjective Date of service: 05/30/19 Principal diagnosis: IUP @ 22 4/7 weeks; CHTN with superimposed Preeclampsia; Atypical HELLP Interval history: Pt is a 23yo BF EDC 09/29/19; EGA 22 4/7 weeks who presented to L&D complaining of severe headache and elevated BP's 195/114; 196/122. She has a history of Preeclampsia and delivery @ 28 weeks, history of stillbirth @ 27 weeks and history of spontaneous @ 18 weeks. She is currently off IV Magnesium sulfate, and on IV Hydralazine prn and PO Labetolol 200mg BID and admitted for management of elevated BP. Her LFT's have improved (AST 75 -> 58 -> 47 -> 31) (ALT 76 -> 66 -> 57 -> 46) but elevated urine TP (2226mg). She is currently feeling well without complaints of headaches, blurred vision and e pigastric pain. Patient reports: movement normal, no new complaints, no loss of fluid, no vaginal bleeding, no contractions Objective - Vital Signs Vital Signs: Vital Signs - 12hr 05/29/19 05/29/19 05/29/19 19:48 20:03 20:18 Temperature Pulse Rate 75 72 73 Respiratory Rate Blood Pressure 146/97 146/89 150/98 O2 Sat by Pulse Oximetry 05/29/19 05/29/19 05/29/19 20:33 20:48 21:03 Temperature Pulse Rate 75 72 72 Respiratory Rate Blood Pressure 152/99 146/102 161/107 O2 Sat by Pulse Oximetry 05/29/19 05/29/19 05/29/19 21:18 21:33 21:45 Temperature Pulse Rate 71 74 Respiratory Rate Blood Pressure 157/107 161/110 161/110 O2 Sat by Pulse Oximetry 05/29/19 05/29/19 05/29/19 21:48 21:55 22:03 Temperature Pulse Rate 71 71 74 Respiratory Rate Blood Pressure 154/105 154/105 170/100 O2 Sat by Pulse Oximetry 05/29/19 05/29/19 05/29/19 22:33 22:37 23:03 Temperature Pulse Rate 86 81 Respiratory 20 Rate Blood Pressure 150/97 160/108 O2 Sat by Pulse Oximetry 05/29/19 05/29/19 05/30/19 23:33 23:36 00:03 Temperature Pulse Rate 81 74 77 Respiratory Rate Blood Pressure 157/100 156/104 144/95 O2 Sat by Pulse Oximetry 05/30/19 05/30/19 05/30/19 00:25 00:33 00:47 Temperature Pulse Rate 70 70 70 Respiratory Rate Blood Pressure 166/100 159/100 159/100 O2 Sat by Pulse Oximetry 05/30/19 05/30/19 05/30/19 00:50 00:55 01:00 Temperature Pulse Rate 71 82 90 Respiratory Rate Blood Pressure O2 Sat by Pulse 99 98 99 Oximetry 05/30/19 05/30/19 05/30/19 01:03 01:05 01:10 Temperature Pulse Rate 85 81 79 Respiratory Rate Blood Pressure 155/93 O2 Sat by Pulse 97 98 Oximetry 05/30/19 05/30/19 05/30/19 01:15 01:20 01:25 Temperature Pulse Rate 83 81 81 Respiratory Rate Blood Pressure O2 Sat by Pulse 98 97 98 Oximetry 05/30/19 05/30/19 05/30/19 01:30 01:33 01:35 Temperature Pulse Rate 80 80 80 Respiratory Rate Blood Pressure 153/91 O2 Sat by Pulse 97 97 Oximetry 05/30/19 05/30/19 05/30/19 01:39 01:40 01:45 Temperature Pulse Rate 86 83 74 Respiratory Rate Blood Pressure O2 Sat by Pulse 78 L 98 97 Oximetry 05/30/19 05/30/19 05/30/19 01:50 01:55 02:00 Temperature Pulse Rate 87 69 71 Respiratory Rate Blood Pressure O2 Sat by Pulse 97 97 98 Oximetry 05/30/19 05/30/1919 02:03 02:05 02:10 Temperature Pulse Rate 69 73 70 Respiratory Rate Blood Pressure 150/102 O2 Sat by Pulse 98 98 Oximetry 05/30/19 05/30/19 05/30/19 02:15 02:20 02:25 Temperature Pulse Rate 72 71 71 Respiratory Rate Blood Pressure O2 Sat by Pulse 97 97 97 Oximetry 05/30/19 05/30/19 05/30/19 02:30 02:33 02:35 Temperature Pulse Rate 71 71 72 Respiratory Rate Blood Pressure 154/103 O2 Sat by Pulse 97 97 Oximetry 05/30/19 05/30/19 05/30/19 02:40 02:45 02:50 Temperature Pulse Rate 70 70 71 Respiratory Rate Blood Pressure O2 Sat by Pulse 97 97 97 Oximetry 05/30/19 05/30/19 05/30/19 02:55 03:00 03:03 Temperature Pulse Rate 70 77 72 Respiratory Rate Blood Pressure 161/106 O2 Sat by Pulse 97 97 Oximetry 05/30/19 05/30/19 05/30/19 03:05 03:10 03:15 Temperature Pulse Rate 67 70 73 Respiratory Rate Blood Pressure O2 Sat by Pulse 98 98 98 Oximetry 05/30/19 05/30/19 05/30/19 03:20 03:25 03:30 Temperature Pulse Rate 84 79 73 Respiratory Rate Blood Pressure O2 Sat by Pulse 96 97 97 Oximetry 05/30/19 05/30/19 05/30/19 03:33 03:35 03:40 Temperature Pulse Rate 71 72 72 Respiratory Rate Blood Pressure 156/103 O2 Sat by Pulse 98 97 Oximetry 05/30/19 05/30/19 05/30/19 03:45 03:50 03:55 Temperature Pulse Rate 76 75 75 Respiratory Rate Blood Pressure O2 Sat by Pulse 98 98 98 Oximetry 05/30/19 05/30/19 05/30/19 04:00 04:03 04:05 Temperature Pulse Rate 79 75 74 Respiratory Rate Blood Pressure 153/98 O2 Sat by Pulse 97 97 Oximetry 05/30/19 05/30/19 05/30/19 04:10 04:15 04:20 Temperature Pulse Rate 71 75 73 Respiratory Rate Blood Pressure O2 Sat by Pulse 97 98 97 Oximetry 05/30/19 05/30/19 05/30/19 04:25 04:30 04:33 Temperature Pulse Rate 80 73 74 Respiratory Rate Blood Pressure 146/96 O2 Sat by Pulse 97 97 Oximetry 05/30/19 05/30/19 05/30/19 04:35 04:40 04:45 Temperature Pulse Rate 72 74 74 Respiratory Rate Blood Pressure O2 Sat by Pulse 97 97 98 Oximetry 05/30/19 05/30/19 05/30/19 04:50 04:55 05:00 Temperature Pulse Rate 75 75 76 Respiratory Rate Blood Pressure O2 Sat by Pulse 98 98 98 Oximetry 05/30/19 05/30/19 05/30/19 05:03 05:05 05:10 Temperature Pulse Rate 76 73 77 Respiratory Rate Blood Pressure 145/94 O2 Sat by Pulse 97 98 Oximetry 05/30/19 05/30/19 05/30/19 05:15 05:20 05:25 Temperature Pulse Rate 79 85 75 Respiratory Rate Blood Pressure O2 Sat by Pulse 98 98 98 Oximetry 05/30/19 05/30/19 05/30/19 05:30 05:33 05:35 Temperature Pulse Rate 75 79 76 Respiratory Rate Blood Pressure 150/95 O2 Sat by Pulse 98 98 Oximetry 05/30/19 05/30/19 05/30/19 05:40 05:45 05:50 Temperature Pulse Rate 78 76 76 Respiratory Rate Blood Pressure O2 Sat by Pulse 99 99 99 Oximetry 05/30/19 05/30/19 05/30/19 05:55 06:00 06:03 Temperature Pulse Rate 77 80 84 Respiratory Rate Blood Pressure 142/89 O2 Sat by Pulse 99 99 Oximetry 05/30/19 05/30/19 05/30/19 06:05 06:10 06:15 Temperature Pulse Rate 78 76 82 Respiratory Rate Blood Pressure O2 Sat by Pulse 99 99 99 Oximetry 05/30/19 05/30/19 05/30/19 06:20 06:25 06:30 Temperature Pulse Rate 70 72 73 Respiratory Rate Blood Pressure O2 Sat by Pulse 99 99 98 Oximetry 05/30/19 05/30/19 05/30/19 06:33 06:35 06:36 Temperature 98.1 F Pulse Rate 75 82 Respiratory Rate Blood Pressure 150/100 O2 Sat by Pulse 99 Oximetry 05/30/19 05/30/19 05/30/19 06:40 06:45 06:50 Temperature Pulse Rate 71 70 71 Respiratory Rate Blood Pressure O2 Sat by Pulse 98 97 97 Oximetry 05/30/19 05/30/19 05/30/19 06:55 07:00 07:03 Temperature Pulse Rate 71 73 75 Respiratory Rate Blood Pressure 157/102 O2 Sat by Pulse 98 98 Oximetry 05/30/19 05/30/19 05/30/19 07:05 07:10 07:15 Temperature Pulse Rate 73 70 71 Respiratory Rate Blood Pressure O2 Sat by Pulse 97 98 98 Oximetry 05/30/19 05/30/19 05/30/19 07:18 07:20 07:25 Temperature Pulse Rate 68 71 69 Respiratory Rate Blood Pressure 148/102 O2 Sat by Pulse 98 98 Oximetry 05/30/19 05/30/19 05/30/19 07:30 07:33 07:35 Temperature Pulse Rate 69 74 68 Respiratory Rate Blood Pressure 153/102 O2 Sat by Pulse 97 98 Oximetry 05/30/19 07:40 Temperature Pulse Rate 67 Respiratory Rate Blood Pressure O2 Sat by Pulse 99 Oximetry - Exam Abdomen: Present: normal appearance, soft Uterus: Present: normal FHR: category 1 Uterine Contraction Monitor Mode: External Uterine Contraction Pattern: Absent - Labs Labs: Abnormal Labs 05/28/19 05/28/19 05/28/19 10:25 10:25 13:00 WBC 15.2 H RBC 3.62 L RDW 15.6 H Sodium Carbon Dioxide BUN Creatinine 0.5 L Glucose Calcium Magnesium AST 75 H ALT 76 H Lactate Dehydrogenase 430 H Albumin Ur Total Protein 24 Hr 2226.00 H Urine Total Protein 159 H 05/28/19 05/28/19 05/28/19 15:56 20:24 20:24 WBC RBC RDW Sodium Carbon Dioxide BUN Creatinine Glucose Calcium Magnesium 4.80 H 6.00 H AST 58 H ALT 66 H Lactate Dehydrogenase 406 H Albumin Ur Total Protein 24 Hr Urine Total Protein 05/29/19 05/29/19 05/29/19 00:36 09:07 09:07 WBC 14.5 H RBC RDW 15.5 H Sodium 134 L Carbon Dioxide 16 L BUN Creatinine 0.6 L Glucose 101 H Calcium 7.4 L Magnesium 5.20 H AST 47 H ALT 57 H Lactate Dehydrogenase Albumin 3.1 L Ur Total Protein 24 Hr Urine Total Protein 05/29/19 05/29/19 05/29/19 19:16 21:28 21:28 WBC 14.4 H RBC 3.51 L RDW 15.8 H Sodium 134 L Carbon Dioxide 19 L BUN 5 L Creatinine 0.5 L Glucose Calcium 7.2 L Magnesium 4.70 H AST ALT Lactate Dehydrogenase Albumin 3.0 L Ur Total Protein 24 Hr Urine Total Protein Laboratory Results - last 24 hr 05/28/19 05/29/19 05/29/19 13:00 09:07 09:07 WBC 14.5 H RBC 3.69 Hgb 11.1 Hct 33.4 MCV 91 MCH 30 MCHC 33 RDW 15.5 H Plt Count 260 Sodium 134 L Potassium 4.0 Chloride 102.7 Carbon Dioxide 16 L Anion Gap 19 BUN 7 Creatinine 0.6 L Estimated GFR > 60 BUN/Creatinine Ratio 12 Glucose 101 H Calcium 7.4 L Magnesium Total Bilirubin 0.20 AST 47 H ALT 57 H Alkaline Phosphatase 98 Total Protein 6.6 Albumin 3.1 L Albumin/Globulin Ratio 0.9 Urine Total Volume 1400 Ur Total Protein 24 Hr 2226.00 H Urine Total Protein 159 H 05/29/19 05/29/19 05/29/19 19:16 21:28 21:28 WBC 14.4 H RBC 3.51 L Hgb 10.7 Hct 31.7 MCV 91 MCH 31 MCHC 34 RDW 15.8 H Plt Count 264 Sodium 134 L Potassium 3.8 Chloride 104.3 Carbon Dioxide 19 L Anion Gap 15 BUN 5 L Creatinine 0.5 L Estimated GFR > 60 BUN/Creatinine Ratio 10 Glucose 88 Calcium 7.2 L Magnesium 4.70 H Total Bilirubin 0.20 AST 31 ALT 46 Alkaline Phosphatase 95 Total Protein 6.4 Albumin 3.0 L Albumin/Globulin Ratio 0.9 Urine Total Volume Ur Total Protein 24 Hr Urine Total Protein
[2019-05-30] MEDS: NIFEdipine XL 60 MG TAB PO SCH (09:29)
[2019-05-30 11:46] LABS: Hemoglobin 10.9 gm/dl (10.1-14.3); Mean Corpuscular HGB Conc 33 % (30-34); Mean Corpuscular Volume 92 fl (79-97); Platelet Count 244 K/mm3 (140-440); Red Cell Distribution Width 15.8 % (13.2-15.2)
[2019-05-30 12:06] LABS: Alanine Aminotransferase 36 units/L (7-56); Albumin 2.8 g/dL (3.9-5); BUN/Creatinine Ratio 8; Blood Urea Nitrogen 5 mg/dL (7-17); Calcium 6.4 mg/dL (8.4-10.2); Hemolysis Index 3
[2019-05-30] MEDS: BUTALB/ACETAMINOPHEN/CAFFEINE TAB PO PRN ×2 (15:22→22:57)
--- NOTE | 2019-05-30 20:07 | Ultrasound Report ---
US OB limited INDICATION / CLINICAL INFORMATION: lack of movement and no heart tones on doppl. COMPARISON: Ultrasound 2 days prior. FINDINGS: Intrauterine is again noted in cephalic presentation. On today's exam, no embryonic cardiac activity was detected. The capping machine operator did not comment on the presence or absence of movement. IMPRESSION: 1. The capping machine operator was unable to detect embryonic cardiac activity. Signer Name: Karthik Sommers MD Signed: 05/30/2019 8:03 PM Workstation Name: [id number]
[2019-05-30] MEDS ORDERED: BUTORPHANOL 2 MG/1 ML INJ IV PRN (20:31)
[2019-05-30] MEDS ORDERED: DINOPROSTONE 10 MG VAG SUPP VG ONE (20:31)
[2019-05-31] MEDS: BUTALB/ACETAMINOPHEN/CAFFEINE TAB PO PRN (08:21)
--- NOTE | 2019-05-31 09:08 | Progress Note ---
Assessment and Plan - Patient Problems (1) Pre-eclampsia during in second trimester, antepartum Onset Date: 05/28/19 Current Visit: Yes Status: Acute Plan to address problem: A: IUFD @ 22 4/7 weeks Chronic hypertension with superimposed Preeclampsia Atypical HELLP - improved LFT's History of Preeclampsia Previous C Section P: Will continue with Induction of labor Continue IV Hydralazine prn, increase PO Labetolol, and add Procardia XL (2) 22 weeks gestation of Onset Date: 05/28/19 Current Visit: No Status: Acute (3) Elevated blood pressure affecting in second trimester, antepartum Onset Date: 05/28/19 Current Visit: No Status: Acute Subjective - Subjective Date of service: 05/31/19 Principal diagnosis: IUFD @ 22 4/7 weeks; CHTN with superimposed Preeclampsia; Atypical HELLP Interval history: Pt is a 23yo BF EDC 09/29/19; EGA 22 4/7 weeks who presented to L&D complaining of severe headache and elevated BP's 195/114; 196/122. She has a history of Preeclampsia and delivery @ 28 weeks, history of stillbirth @ 27 weeks and history of spontaneous @ 18 weeks. She is currently off IV Magnesium sulfate, and on IV Hydralazine prn and PO Labetolol 200mg BID and admitted for management of elevated BP. Her LFT's have improved (AST 75 -> 58 -> 47 -> 31) (ALT 76 -> 66 -> 57 -> 46) but elevated urine TP (2226mg). She is currently feeling well without complaints of headaches, blurred vision and epigastric pain. Ob u/s last night showed demise. Patient reports: movement normal, no new complaints, no loss of fluid, no vaginal bleeding, no contractions Objective - Vital Signs Vital Signs: Vital Signs - 12hr 05/30/19 05/30/19 05/30/19 21:07 21:12 21:17 Temperature Pulse Rate 62 76 76 Respiratory Rate Blood Pressure O2 Sat by Pulse 97 97 98 Oximetry 05/30/19 05/30/19 05/30/19 21:22 21:27 21:32 Temperature Pulse Rate 78 76 82 Respiratory Rate Blood Pressure O2 Sat by Pulse 97 98 98 Oximetry 05/30/19 05/30/19 05/30/19 21:33 22:00 22:13 Temperature Pulse Rate 75 72 75 Respiratory Rate Blood Pressure 169/111 168/105 168/107 O2 Sat by Pulse Oximetry 05/30/19 05/30/19 05/30/19 22:23 22:33 22:43 Temperature Pulse Rate 70 68 71 Respiratory Rate Blood Pressure 163/109 161/112 158/101 O2 Sat by Pulse Oximetry 05/30/19 05/30/19 05/30/19 22:53 22:57 23:13 Temperature Pulse Rate 68 75 Respiratory 18 Rate Blood Pressure 160/106 163/108 O2 Sat by Pulse Oximetry 05/30/19 05/30/19 05/30/19 23:23 23:33 23:43 Temperature Pulse Rate 71 71 74 Respiratory Rate Blood Pressure 156/103 149/93 140/91 O2 Sat by Pulse Oximetry 05/30/19 05/30/19 05/31/19 23:53 23:57 00:03 Temperature Pulse Rate 70 70 Respiratory 18 Rate Blood Pressure 137/90 135/89 O2 Sat by Pulse Oximetry 05/31/19 05/31/19 05/31/19 00:13 00:23 00:33 Temperature Pulse Rate 68 74 78 Respiratory Rate Blood Pressure 134/87 143/89 160/97 O2 Sat by Pulse Oximetry 05/31/19 05/31/19 05/31/19 00:43 00:53 01:03 Temperature Pulse Rate 88 69 72 Respiratory Rate Blood Pressure 149/86 151/90 152/90 O2 Sat by Pulse Oximetry 05/31/19 05/31/19 05/31/19 01:13 01:23 01:33 Temperature Pulse Rate 71 73 77 Respiratory Rate Blood Pressure 145/87 144/87 145/88 O2 Sat by Pulse Oximetry 05/31/19 05/31/19 05/31/19 01:43 01:53 02:03 Temperature Pulse Rate 74 71 72 Respiratory Rate Blood Pressure 151/93 158/96 162/99 O2 Sat by Pulse Oximetry 05/31/19 05/31/19 05/31/19 02:13 02:23 02:33 Temperature Pulse Rate 71 73 76 Respiratory Rate Blood Pressure 148/91 142/88 143/87 O2 Sat by Pulse Oximetry 05/31/19 05/31/19 05/31/19 02:43 02:53 03:03 Temperature Pulse Rate 74 77 78 Respiratory Rate Blood Pressure 146/90 145/90 152/92 O2 Sat by Pulse Oximetry 05/31/19 05/31/19 05/31/19 03:13 03:23 03:33 Temperature Pulse Rate 86 75 76 Respiratory Rate Blood Pressure 146/91 149/94 149/94 O2 Sat by Pulse Oximetry 05/31/19 05/31/19 05/31/19 03:43 03:53 04:03 Temperature Pulse Rate 78 82 77 Respiratory Rate Blood Pressure 144/91 152/94 150/93 O2 Sat by Pulse Oximetry 05/31/19 05/31/19 05/31/19 04:14 04:43 04:53 Temperature Pulse Rate 76 75 72 Respiratory Rate Blood Pressure 147/93 143/87 138/84 O2 Sat by Pulse Oximetry 05/31/19 05/31/19 05/31/19 05:03 05:13 05:23 Temperature Pulse Rate 71 74 67 Respiratory Rate Blood Pressure 137/82 145/87 152/92 O2 Sat by Pulse Oximetry 05/31/19 05/31/19 05/31/19 05:33 05:43 05:53 Temperature Pulse Rate 71 78 77 Respiratory Rate Blood Pressure 142/87 136/87 142/89 O2 Sat by Pulse Oximetry 05/31/19 05/31/19 05/31/19 06:03 06:13 06:23 Temperature Pulse Rate 82 77 71 Respiratory Rate Blood Pressure 146/87 150/82 156/84 O2 Sat by Pulse Oximetry 05/31/19 05/31/19 05/31/19 06:33 06:43 06:53 Temperature Pulse Rate 87 81 76 Respiratory Rate Blood Pressure 147/78 145/81 150/83 O2 Sat by Pulse Oximetry 05/31/19 05/31/19 05/31/19 07:03 07:13 07:23 Temperature Pulse Rate 76 80 82 Respiratory Rate Blood Pressure 136/89 138/66 136/66 O2 Sat by Pulse Oximetry 05/31/19 05/31/19 05/31/19 07:33 07:43 07:53 Temperature Pulse Rate 82 82 80 Respiratory Rate Blood Pressure 137/73 137/79 141/83 O2 Sat by Pulse Oximetry 05/31/19 05/31/19 05/31/19 08:04 08:08 08:13 Temperature 99.1 F Pulse Rate 80 75 Respiratory Rate Blood Pressure 140/105 154/99 O2 Sat by Pulse Oximetry 05/31/19 05/31/19 05/31/19 08:23 08:24 08:33 Temperature Pulse Rate 85 78 74 Respiratory Rate Blood Pressure 157/103 160/105 163/104 O2 Sat by Pulse Oximetry 05/31/19 05/31/19 05/31/19 08:43 08:53 09:04 Temperature Pulse Rate 75 81 78 Respiratory Rate Blood Pressure 150/96 196/97 159/79 O2 Sat by Pulse Oximetry - Exam Breasts: deferred Abdomen: Present: normal appearance Uterus: Present: normal Uterine Contraction Monitor Mode: External Uterine Contraction Pattern: Irregular Uterine Tone Measurement Phase: Contraction Uterine Contraction Intensity: Mild - Labs Labs: Abnormal Labs 05/28/19 05/28/19 05/28/19 10:25 10:25 13:00 WBC 15.2 H RBC 3.62 L RDW 15.6 H Sodium Carbon Dioxide BUN Creatinine 0.5 L Glucose Calcium Magnesium AST 75 H ALT 76 H Lactate Dehydrogenase 430 H Total Protein Albumin Ur Total Protein 24 Hr 2226.00 H Urine Total Protein 159 H 05/28/19 05/28/19 05/28/19 15:56 20:24 20:24 WBC RBC RDW Sodium Carbon Dioxide BUN Creatinine Glucose Calcium Magnesium 4.80 H 6.00 H AST 58 H ALT 66 H Lactate Dehydrogenase 406 H Total Protein Albumin Ur Total Protein 24 Hr Urine Total Protein 05/29/19 05/29/19 05/29/19 00:36 09:07 09:07 WBC 14.5 H RBC RDW 15.5 H Sodium 134 L Carbon Dioxide 16 L BUN Creatinine 0.6 L Glucose 101 H Calcium 7.4 L Magnesium 5.20 H AST 47 H ALT 57 H Lactate Dehydrogenase Total Protein Albumin 3.1 L Ur Total Protein 24 Hr Urine Total Protein 05/29/19 05/29/19 05/29/19 19:16 21:28 21:28 WBC 14.4 H RBC 3.51 L RDW 15.8 H Sodium 134 L Carbon Dioxide 19 L BUN 5 L Creatinine 0.5 L Glucose Calcium 7.2 L Magnesium 4.70 H AST ALT Lactate Dehydrogenase Total Protein Albumin 3.0 L Ur Total Protein 24 Hr Urine Total Protein 05/30/19 05/30/19 11:17 11:17 WBC 13.1 H RBC 3.60 L RDW 15.8 H Sodium 133 L Carbon Dioxide 19 L BUN 5 L Creatinine 0.6 L Glucose 121 H Calcium 6.4 L Magnesium AST ALT Lactate Dehydrogenase Total Protein 6.1 L Albumin 2.8 L Ur Total Protein 24 Hr Urine Total Protein Laboratory Results - last 24 hr 05/30/19 05/30/19 11:17 11:17 WBC 13.1 H RBC 3.60 L Hgb 10.9 Hct 33.0 MCV 92 MCH 30 MCHC 33 RDW 15.8 H Plt Count 244 Sodium 133 L Potassium 3.7 Chloride 103.1 Carbon Dioxide 19 L Anion Gap 15 BUN 5 L Creatinine 0.6 L Estimated GFR > 60 BUN/Creatinine Ratio 8 Glucose 121 H Calcium 6.4 L Total Bilirubin < 0.20 AST 24 ALT 36 Alkaline Phosphatase 90 Total Protein 6.1 L Albumin 2.8 L Albumin/Globulin Ratio 0.8 - Results US- obstetric: report reviewed (No FHT's)
[2019-05-31] MEDS: PRENATAL VIT27-FE FUMARATE-FOLIC ACID VIT TAB PO SCH (09:58)
[2019-05-31] MEDS: NIFEdipine XL 60 MG TAB PO SCH (09:58)
[2019-05-31] MEDS: hydrALAZINE 20 MG/1 ML INJ IV PRN ×4 (10:26→19:50)
[2019-05-31] MEDS ORDERED: miSOPROStol 100 MCG TAB VG SCH (12:00)
[2019-05-31] MEDS ORDERED: miSOPROStol 200 MCG TAB VG SCH ×2 (16:00→20:06)
[2019-05-31] MEDS: fentaNYL 100 MCG/2 ML INJ IV PRN ×2 (17:51→19:49)
[2019-05-31] MEDS: ONDANSETRON 4 MG/2 ML INJ IV PRN (19:50)
[2019-05-31] MEDS ORDERED: OXYTOCIN 20 UNIT/1000ML DRIP 40,000 MILLIUNITS/2,000 ML BAG IV ONE (20:23)
--- NOTE | 2019-05-31 20:37 | Procedure Note ---
OB Delivery Note - Delivery Date of Delivery: 05/31/19 Surgeon: ADRIEL SALDAÑA Estimated blood loss: <100cc - Vaginal Delivery presentation: vertex Delivery position: OA Intrapartum events: labor-<37 weeks, other(please specify) ( demise) Delivery induction: misoprostol Delivery monitor: external uterine Route of delivery: Delivery placenta: spontaneous Delivery cord: 3 umbilical vessels Episiotomy: none Delivery laceration: none Anesthesia: intravenous Delivery comments: Non-viable fetus delivered OA, cord clamped and cut and handed to awaiting Nurse - A at 1 minute: 0 at 5 minutes: 0 Gender: Male (406gms)
[2019-05-31] MEDS ORDERED: MAGNESIUM HYDROXIDE (MOM) ORAL LIQD UDC PO PRN (20:38)
[2019-05-31] MEDS ORDERED: PROMETHAZINE 25 MG TAB PO PRN (20:38)
[2019-05-31] MEDS ORDERED: LANOLIN/ZINC/DIMETHICONE (LANSINOH) 7 GM TP PRN (20:38)
[2019-05-31] MEDS ORDERED: WITCH HAZEL/ GLYCERIN PAD TP PRN (20:38)
[2019-05-31] MEDS ORDERED: diphenhydrAMINE 25 MG CAP PO PRN (20:38)
[2019-05-31] MEDS ORDERED: ACETAMINOPHEN 325 MG TAB PO PRN (20:38)
[2019-05-31] MEDS ORDERED: ONDANSETRON 4 MG/2 ML INJ IV PRN (20:38)
[2019-05-31] MEDS ORDERED: PROMETHAZINE 25 MG RECT SUPP PR PRN (20:38)
[2019-05-31] MEDS ORDERED: OXYTOCIN 20 UNIT/1000ML DRIP 20 UNITS/1,000 ML BAG IV SCH (21:00)
[2019-05-31] MEDS: IBUPROFEN 600 MG TAB PO SCH (21:54)
[2019-05-31] MEDS: HYDROcodone/ACETAMINOPHEN 5-325 MG TAB PO PRN (21:56)
[2019-05-31] MEDS ORDERED: FERROUS SULFATE 325 MG TAB PO SCH (22:00)
[2019-06-01] MEDS ORDERED: MEASLES, MUMPS & RUBELLA 12,500 UNIT/0.5 ML VACCINE SUB-Q ONE (06:00)
[2019-06-01] MEDS ORDERED: TETANUS,DIPH,PERTUSS(ACELL) VACCINE 0.5 ML SYRINGE IM ONE (06:00)
[2019-06-01] MEDS: IBUPROFEN 600 MG TAB PO SCH (06:37)
[2019-06-01 08:30] LABS: Hematocrit 30.5 % (30.3-42.9); Hemoglobin 9.9 gm/dl (10.1-14.3)
[2019-06-01] MEDS: NIFEdipine XL 60 MG TAB PO SCH (09:35)
[2019-06-01] MEDS: PRENATAL VIT27-FE FUMARATE-FOLIC ACID VIT TAB PO SCH (09:35)
[2019-06-01] MEDS: HYDROcodone/ACETAMINOPHEN 5-325 MG TAB PO PRN (11:06)
--- NOTE | 2019-06-01 11:18 | Progress Note ---
Assessment and Plan - Patient Problems (1) Pre-eclampsia during in second trimester, antepartum Onset Date: 05/28/19 Current Visit: Yes Status: Resolved (2) 22 weeks gestation of Onset Date: 05/28/19 Current Visit: No Status: Resolved (3) Elevated blood pressure affecting in second trimester, antepartum Onset Date: 05/28/19 Current Visit: No Status: Resolved (4) demise > 22 weeks, delivered, current hospitalization Onset Date: 06/01/19 Current Visit: Yes Status: Resolved Plan to address problem: A: S/P ( demise) - PPD #1 Doing well Preeclampsia - improved Asymptomatic anemia - stable P: May go home today Follow up in office in 1 week for BP check. Subjective - Subjective Date of service: 06/01/19 Principal diagnosis: s/p - PPD #1 Interval history: Pt is feeling well without complaints except slight headache. Bleeding improved. Patient reports: appetite normal, voiding normally, pain well controlled, flatu s, ambulating normally, no dizzy ambulation, no nauseated [place]: Objective - Vital Signs Latest vital signs: Vital Signs Temp Pulse Resp BP BP Pulse Ox 06/01/19 09:45 98.4 F 69 18 150/91 06/01/19 09:33 69 06/01/19 07:51 98.4 F 58 L 18 150/91 98 06/01/19 03:16 98.2 F 84 18 134/81 99 06/01/19 00:30 98 F 73 14 148/94 06/01/19 00:04 91 H 147/88 05/31/19 23:49 72 152/92 05/31/19 23:34 72 145/79 05/31/19 23:19 82 132/75 05/31/19 23:04 81 130/71 05/31/19 22:49 81 132/81 05/31/19 22:34 82 151/86 05/31/19 22:19 75 167/90 05/31/19 22:04 78 167/95 05/31/19 21:56 16 05/31/19 21:55 76 175/99 05/31/19 21:54 81 16 175/105 05/31/19 21:21 81 174/105 05/31/19 20:14 85 182/117 05/31/19 19:58 75 183/110 05/31/19 19:56 83 190/116 05/31/19 19:50 75 183/110 05/31/19 19:28 87 177/111 05/31/19 18:58 75 168/90 05/31/19 18:38 71 186/100 05/31/19 18:28 71 186/100 05/31/19 18:13 70 163/99 05/31/19 17:57 82 156/82 05/31/19 17:56 98.7 F 05/31/19 17:50 81 171/101 05/31/19 17:43 80 170/100 05/31/19 17:13 76 148/95 05/31/19 16:58 78 158/101 05/31/19 16:43 73 149/100 05/31/19 16:28 75 145/99 05/31/19 16:13 80 138/94 05/31/19 16:07 73 140/89 05/31/19 15:58 76 150/95 05/31/19 15:43 74 145/94 05/31/19 15:28 82 153/95 05/31/19 15:13 86 138/95 05/31/19 14:43 82 137/83 05/31/19 14:28 89 134/78 05/31/19 14:13 81 129/71 05/31/19 13:58 85 128/75 05/31/19 13:43 80 131/77 05/31/19 13:28 75 138/83 05/31/19 13:10 76 177/104 05/31/19 13:08 98.7 F 05/31/19 13:06 72 165/101 05/31/19 13:03 72 165/101 05/31/19 12:53 75 157/100 05/31/19 12:43 75 155/100 05/31/19 12:33 72 161/100 05/31/19 12:24 69 152/99 05/31/19 12:13 65 154/100 05/31/19 12:03 67 151/100 05/31/19 11:53 71 152/97 05/31/19 11:43 65 156/97 05/31/19 11:33 68 152/105 05/31/19 11:23 72 142/98 Intake and Output 05/31/19 06/01/19 06/01/19 22:59 06:59 14:59 Other: Estimated Blood Loss 100 - Exam Breasts: Present: deferred Uterus: Present: normal, firm, fundal height below umbilicus Extremities: Present: normal - Labs Labs: Abnormal lab results 06/01/19 Range/Units 07:14 Hgb 9.9 L (10.1-14.3) gm/dl Laboratory Results - last 24 hr 06/01/19 07:14 Hgb 9.9 L Hct 30.5 Laboratory Tests 05/28/19 05/28/19 05/28/19 10:25 10:25 13:00 WBC 15.2 H RBC 3.62 L Hgb 11.0 Hct 33.0 MCV 91 MCH 30 MCHC 33 RDW 15.6 H Plt Count 255 PT INR APTT Sodium Potassium Chloride Carbon Dioxide Anion Gap BUN Creatinine 0.5 L Estimated GFR > 60 BUN/Creatinine Ratio Glucose Uric Acid 4.4 Calcium Magnesium Total Bilirubin AST 75 H ALT 76 H Alkaline Phosphatase Lactate Dehydrogenase 430 H Total Protein Albumin Albumin/Globulin Ratio Urine Color Urine Turbidity Urine pH Ur Specific [place] Urine Protein Urine Glucose (UA) Urine Ketones Urine Blood Urine Nitrite Urine Bilirubin Urine Urobilinogen Ur Leukocyte Esterase Urine WBC (Auto) Urine RBC (Auto) U Epithel Cells (Auto) Urine Mucus Urine Total Volume 1400 Ur Total Protein 24 Hr 2226.00 H Urine Total Protein 159 H Urine Opiates Screen Urine Methadone Screen Ur Barbiturates Screen Ur Phencyclidine Scrn Ur Amphetamines Screen U Benzodiazepines Scrn Urine Cocaine Screen U Marijuana (THC) Screen Drugs of Abuse Note Blood Type Antibody Screen 05/28/19 05/28/19 05/28/19 13:45 15:56 19:45 WBC RBC Hgb Hct MCV MCH MCHC RDW Plt Count PT INR APTT Sodium Potassium Chloride Carbon Dioxide Anion Gap BUN Creatinine Estimated GFR BUN/Creatinine Ratio Glucose Uric Acid Calcium Magnesium 4.80 H Total Bilirubin AST ALT Alkaline Phosphatase Lactate Dehydrogenase Total Protein Albumin Albumin/Globulin Ratio Urine Color Yellow Urine Turbidity Clear Urine pH 6.0 Ur Specific [place] 1.023 Urine Protein >500 Urine Glucose (UA) 50 Urine Ketones 20 Urine Blood Neg Urine Nitrite Neg Urine Bilirubin Neg Urine Urobilinogen < 2.0 Ur Leukocyte Esterase Neg Urine WBC (Auto) 4.0 Urine RBC (Auto) 2.0 U Epithel Cells (Auto) 1.0 Urine Mucus Few Urine Total Volume Ur Total Protein 24 Hr Urine Total Protein Urine Opiates Screen Presumptive negative Urine Methadone Screen Presumptive negative Ur Barbiturates Screen Presumptive positive Ur Phencyclidine Scrn Presumptive negative Ur Amphetamines Screen Presumptive negative U Benzodiazepines Scrn Presumptive negative Urine Cocaine Screen Presumptive negative U Marijuana (THC) Screen Presumptive positive Drugs of Abuse Note Disclamer Blood Type Antibody Screen 05/28/19 05/28/19 05/29/19 20:24 20:24 00:36 WBC RBC Hgb Hct MCV MCH MCHC RDW Plt Count PT INR APTT Sodium Potassium Chloride Carbon Dioxide Anion Gap BUN Creatinine Estimated GFR BUN/Creatinine Ratio Glucose Uric Acid Calcium Magnesium 6.00 H 5.20 H Total Bilirubin AST 58 H ALT 66 H Alkaline Phosphatase Lactate Dehydrogenase 406 H Total Protein Albumin Albumin/Globulin Ratio Urine Color Urine Turbidity Urine pH Ur Specific [place] Urine Protein Urine Glucose (UA) Urine Ketones Urine Blood Urine Nitrite Urine Bilirubin Urine Urobilinogen Ur Leukocyte Esterase Urine WBC (Auto) Urine RBC (Auto) U Epithel Cells (Auto) Urine Mucus Urine Total Volume Ur Total Protein 24 Hr Urine Total Protein Urine Opiates Screen Urine Methadone Screen Ur Barbiturates Screen Ur Phencyclidine Scrn Ur Amphetamines Screen U Benzodiazepines Scrn Urine Cocaine Screen U Marijuana (THC) Screen Drugs of Abuse Note Blood Type Antibody Screen 05/29/19 05/29/19 05/29/19 00:36 00:36 09:07 WBC 14.5 H RBC 3.69 Hgb 11.1 Hct 33.4 MCV 91 MCH 30 MCHC 33 RDW 15.5 H Plt Count 260 PT 13.5 INR 1.02 APTT 27.9 Sodium Potassium Chloride Carbon Dioxide Anion Gap BUN Creatinine Estimated GFR BUN/Creatinine Ratio Glucose Uric Acid Calcium Magnesium Total Bilirubin AST ALT Alkaline Phosphatase Lactate Dehydrogenase Total Protein Albumin Albumin/Globulin Ratio Urine Color Urine Turbidity Urine pH Ur Specific [place] Urine Protein Urine Glucose (UA) Urine Ketones Urine Blood Urine Nitrite Urine Bilirubin Urine Urobilinogen Ur Leukocyte Esterase Urine WBC (Auto) Urine RBC (Auto) U Epithel Cells (Auto) Urine Mucus Urine Total Volume Ur Total Protein 24 Hr Urine Total Protein Urine Opiates Screen Urine Methadone Screen Ur Barbiturates Screen Ur Phencyclidine Scrn Ur Amphetamines Screen U Benzodiazepines Scrn Urine Cocaine Screen U Marijuana (THC) Screen Drugs of Abuse Note Blood Type O POSITIVE Antibody Screen Negative 05/29/19 05/29/19 05/29/19 09:07 19:16 21:28 WBC 14.4 H RBC 3.51 L Hgb 10.7 Hct 31.7 MCV 91 MCH 31 MCHC 34 RDW 15.8 H Plt Count 264 PT INR APTT Sodium 134 L Potassium 4.0 Chloride 102.7 Carbon Dioxide 16 L Anion Gap 19 BUN 7 Creatinine 0.6 L Estimated GFR > 60 BUN/Creatinine Ratio 12 Glucose 101 H Uric Acid Calcium 7.4 L Magnesium 4.70 H Total Bilirubin 0.20 AST 47 H ALT 57 H Alkaline Phosphatase 98 Lactate Dehydrogenase Total Protein 6.6 Albumin 3.1 L Albumin/Globulin Ratio 0.9 Urine Color Urine Turbidity Urine pH Ur Specific [place] Urine Protein Urine Glucose (UA) Urine Ketones Urine Blood Urine Nitrite Urine Bilirubin Urine Urobilinogen Ur Leukocyte Esterase Urine WBC (Auto) Urine RBC (Auto) U Epithel Cells (Auto) Urine Mucus Urine Total Volume Ur Total Protein 24 Hr Urine Total Protein Urine Opiates Screen Urine Methadone Screen Ur Barbiturates Screen Ur Phencyclidine Scrn Ur Amphetamines Screen U Benzodiazepines Scrn Urine Cocaine Screen U Marijuana (THC) Screen Drugs of Abuse Note Blood Type Antibody Screen 05/29/19 05/30/19 05/30/19 21:28 11:17 11:17 WBC 13.1 H RBC 3.60 L Hgb 10.9 Hct 33.0 MCV 92 MCH 30 MCHC 33 RDW 15.8 H Plt Count 244 PT INR APTT Sodium 134 L 133 L Potassium 3.8 3.7 Chloride 104.3 103.1 Carbon Dioxide 19 L 19 L Anion Gap 15 15 BUN 5 L 5 L Creatinine 0.5 L 0.6 L Estimated GFR > 60 > 60 BUN/Creatinine Ratio 10 8 Glucose 88 121 H Uric Acid Calcium 7.2 L 6.4 L Magnesium Total Bilirubin 0.20 < 0.20 AST 31 24 ALT 46 36 Alkaline Phosphatase 95 90 Lactate Dehydrogenase Total Protein 6.4 6.1 L Albumin 3.0 L 2.8 L Albumin/Globulin Ratio 0.9 0.8 Urine Color Urine Turbidity Urine pH Ur Specific [place] Urine Protein Urine Glucose (UA) Urine Ketones Urine Blood Urine Nitrite Urine Bilirubin Urine Urobilinogen Ur Leukocyte Esterase Urine WBC (Auto) Urine RBC (Auto) U Epithel Cells (Auto) Urine Mucus Urine Total Volume Ur Total Protein 24 Hr Urine Total Protein Urine Opiates Screen Urine Methadone Screen Ur Barbiturates Screen Ur Phencyclidine Scrn Ur Amphetamines Screen U Benzodiazepines Scrn Urine Cocaine Screen U Marijuana (THC) Screen Drugs of Abuse Note Blood Type Antibody Screen 06/01/19 07:14 WBC RBC Hgb 9.9 L Hct 30.5 MCV MCH MCHC RDW Plt Count PT INR APTT Sodium Potassium Chloride Carbon Dioxide Anion Gap BUN Creatinine Estimated GFR BUN/Creatinine Ratio Glucose Uric Acid Calcium Magnesium Total Bilirubin AST ALT Alkaline Phosphatase Lactate Dehydrogenase Total Protein Albumin Albumin/Globulin Ratio Urine Color Urine Turbidity Urine pH Ur Specific [place] Urine Protein Urine Glucose (UA) Urine Ketones Urine Blood Urine Nitrite Urine Bilirubin Urine Urobilinogen Ur Leukocyte Esterase Urine WBC (Auto) Urine RBC (Auto) U Epithel Cells (Auto) Urine Mucus Urine Total Volume Ur Total Protein 24 Hr Urine Total Protein Urine Opiates Screen Urine Methadone Screen Ur Barbiturates Screen Ur Phencyclidine Scrn Ur Amphetamines Screen U Benzodiazepines Scrn Urine Cocaine Screen U Marijuana (THC) Screen Drugs of Abuse Note Blood Type Antibody Screen
--- NOTE | 2019-06-01 12:55 | Discharge Summary ---
Providers - Providers Date of Admission: 05/28/19 09:10 Date of discharge: 06/01/19 Attending physician: ADRIEL SALDAÑA 05/28/19 11:14 Consult to Physician [CONS] Urgent Comment: Consulting Provider: ALICE BEVERLY Physician Instructions: Reason For Exam: IUP @ 22 weeks; Hypertension Primary care physician: ADRIEL SALDAÑA Hospitalization Reason for admission: IUP - , observation, other (Severe preeclampsia) Delivery: Episiotomy: none Laceration: none Other procedures: none complications: none Discharge diagnosis: intrapartum demise [place] baby: male Hospital course: Pt is a 23yo BF EDC 09/29/19; EGA 22 09/07 weeks who presented to L&D complaining of severe headache and elevated BP's 195/114; 196/122. She had a history of Preeclampsia and delivery @ 28 weeks, history of stillbirth @ 27 weeks and history of spontaneous @ 18 weeks. She is received IV Magnesium sulfate, IV Hydralazine prn and PO Labetolol 200mg BID and was admitted for management of elevated BP's. Her LFT's were initially elevated, but improved (AST 75 -> 58 -> 47 -> 31) (ALT 76 -> 66 -> 57 -> 46) and she had elevated urine TP (2226mg). During the course of Observation the fetus , confirmed by Ob u/s. She was therefore induced and delivered a non viable male fetus. Post course was unremarkable, and BP's remained stable on Labetolol 300mg BID and Procardia XL 60mg QD. She will follow up in the office in 1 week for BP check. Condition at discharge: Good Disposition: [id number] TO HOME OR SELFCARE - Discharge Diagnoses (1) Pre-eclampsia during in second trimester, antepartum Status: Resolved (2) 22 weeks gestation of Status: Resolved (3) Elevated blood pressure affecting in second trimester, antepartum Status: Resolved Comment: RTO one week for BP check (4) demise > 22 weeks, delivered, current hospitalization Status: Resolved Plan - Discharge Medications Prescriptions: Ferrous Sulfate [Feosol 325 MG tab] 325 mg PO BID #60 tablet labetaloL [Labetalol 100mg TAB] 300 mg PO BID #60 tablet Ibuprofen [Motrin 600 MG tab] 600 mg PO Q6HR #30 tablet Vit-Fe Fumar-FA [ Vitamin] 1 each PO QDAY #30 tablet NIFEdipine XL [Procardia Xl] 60 mg PO QDAY #30 tablet - Provider Discharge Summary Activity: routine, no sex for 6 weeks, no heavy lifting 4 weeks, no strenuous exercise Diet: routine Instructions: routine Additional instructions: [] Smoking cessation referral if applicable(refer to patient education folder for contact #) [] Refer to [facility]'s [facility] Booklet Call your doctor immediately for: * Fever > 100.5 * Heavy vaginal bleeding ( >1 pad per hour) * Severe persistent headache * Shortness of breath * Reddened, hot, painful area to leg or breast * Drainage or odor from incision. * Keep incision clean and dry at all times and follow doctor's instructions regarding bathing/showering Follow up in office in 1 week for BP check - Follow up plan Follow up: ADRIEL SALDAÑA MD [Primary Care Provider] - 7 Days
[2019-06-01 16:26] VITALS: BP 146/94
== END 2019-06-01 16:28 | disposition home or self-care (01) | DRG 775 ==
LOC: TRG 09:09 → LD 09:10 → TRG 09:13 → OB 06-01 01:29
PROVIDERS: ADMIT Obstetrics & Gynecology; ATTEND Obstetrics & Gynecology
PROC: 10E0XZZ Delivery of Products of Conception, External Approach (ICD-10-PCS; principal; 2019-05-31)
PROC: 3E033VJ Introduction of Other Hormone into Peripheral Vein, Percutaneous Approach (ICD-10-PCS; 2019-05-31)
PROC: 3E0234Z Introduction of Serum, Toxoid and Vaccine into Muscle, Percutaneous Approach (ICD-10-PCS; 2019-06-01)
PROC: 3E0134Z Introduction of Serum, Toxoid and Vaccine into Subcutaneous Tissue, Percutaneous Approach (ICD-10-PCS; 2019-06-01)
DX: O60.12X0 Preterm labor second trimester with preterm delivery second trimester, not applicable or unspecified (principal); O11.4 Pre-existing hypertension with pre-eclampsia, complicating childbirth; O75.89 Other specified complications of labor and delivery; R03.0 Elevated blood-pressure reading, without diagnosis of hypertension; O99.02 Anemia complicating childbirth; O36.5920 Maternal care for other known or suspected poor fetal growth, second trimester, not applicable or unspecified; O34.211 Maternal care for low transverse scar from previous cesarean delivery; Z3A.22 22 weeks gestation of pregnancy; Z37.1 Single stillbirth; Z79.899 Other long term (current) drug therapy
CPT/HCPCS: 36415; 59200; 76815; 76816; 80053; 80307; 81001; 82565; 83615; 83735; 84156; 84450; 84460; 84550; 85014; 85018; 85027; 85610; 85730; 86850; 86900; 86901; 88305; G0378; J0360; J2405; J2590; J3010; J3475; J7120